=== PATIENT | male | born 1940 | race Asian ===

== ENCOUNTER → 2024-04-17 | Outpatient (CLI) | payer OTHER, MEDICAID, SELFPAY ==
[2024-04-17 07:59] LABS: Collection Type, Urine Clean Catch
[2024-04-17 08:27] LABS: Basophils % (Auto) 1 % (0-2.5); Eosinophils # (Auto) 0.1 Thou/mm3 (0.0-0.5); Eosinophils % (Auto) 2 % (0-10); Hematocrit 45.6 % (41.0-53.0); Hemoglobin 14.9 g/dL (13.5-16.0); Immature Granulocytes % (Auto) 0 % (0-0); Immature Granulocytes Auto 0.02 Thou/mm3 (0.00-0.00); Lymphocytes # (Auto) 2.6 Thou/mm3 (1.0-4.8); Lymphocytes % (Auto) 31 % (10-50); Mean Corpuscular HGB Conc 32.7 g/dl (31.0-37.0); Mean Corpuscular Hemoglobin 28.7 pg (25.0-35.0); Mean Corpuscular Volume 88 fL (80-100); Monocytes # (Auto) 0.7 Thou/mm3 (0.0-0.8); Monocytes % (Auto) 8 % (0-12); Neutrophils # (Auto) 5.1 Thou/mm3 (1.8-7.7); Neutrophils % (Auto) 59 % (37-80); Nucleated Red Blood Cell % 0 /100 WBC (0); Platelet Count 214 Thou/mm3 (140-440); RDW Standard Deviation 43.3 fL (35.1-43.9); White Blood Count 8.6 Thou/mm3 (3.8-10.6)
[2024-04-17 08:31] LABS: Bilirubin,Urine Negative (Negative); Blood,Urine 1+ (Negative); Clarity,Urine Clear (Clear/Hazy); Color,Urine Lt-Yellow (Lt Yel-Yel); Glucose, Urine Negative (Negative); Ketones,Urine Negative (Negative); Leukocyte Esterase,Urine Negative (Negative); Nitrite,Urine Negative (Negative); Protein,Urine 1+ (Neg - Trace); RBC,Urine 5 /hpf (0-3); Specific Gravity,Urine 1.022 (1.001-1.035); Squamous Epithelial Cell,Urine < 1 /hpf (0-5); Urobilinogen,Urine Negative mg/dL (0.0-1.0); WBC,Urine 2 /hpf (0-5)
[2024-04-17 08:40] LABS: Glucose Estimated Average 157 mg/dL (80-131); Hemoglobin A1C 7.1 % Hgb (4.8-6.0)
[2024-04-17 08:59] LABS: Albumin, Serum 4.6 gm/dL (3.4-4.8); Anion Gap 5 (7-16); BUN/Creatinine Ratio 11 Ratio (12-20); Blood Urea Nitrogen 17 mg/dL (9-23); Chloride 104 mMol/L (98-107); Creatinine (Component) 1.6 mg/dL (0.6-1.3); Glucose 176 mg/dL (74-106); Osmolality,Calculated 281 (275-295); Phosphorous 3.3 mg/dL (2.4-5.1); Potassium 4.9 mMol/L (3.4-5.1); Sodium 138 mMol/L (136-145); eGFR 42 See Note
== END | disposition home or self-care (01) ==
PROVIDERS: PCP Internal Medicine Nephrology; Referring Provider Internal Medicine Nephrology; Visit Provider Internal Medicine Nephrology
DX: E11.9 Type 2 diabetes mellitus without complications (principal)
CPT/HCPCS: 36415; 80069; 81001; 83036; 85025

== ENCOUNTER → 2024-08-03 | Outpatient (CLI) | payer MEDICARE, MEDICAID, SELFPAY ==
[2024-08-03 08:36] LABS: Basophils # (Auto) 0.1 Thou/mm3 (0.0-0.2); Basophils % (Auto) 1 % (0-2.5); Eosinophils # (Auto) 0.1 Thou/mm3 (0.0-0.5); Eosinophils % (Auto) 1 % (0-10); Hematocrit 45.2 % (41.0-53.0); Hemoglobin 14.9 g/dL (13.5-16.0); Immature Granulocytes % (Auto) 1 % (0-0); Immature Granulocytes Auto 0.04 Thou/mm3 (0.00-0.00); Lymphocytes # (Auto) 2.1 Thou/mm3 (1.0-4.8); Lymphocytes % (Auto) 26 % (10-50); Mean Corpuscular Volume 88 fL (80-100); Monocytes # (Auto) 0.7 Thou/mm3 (0.0-0.8); Monocytes % (Auto) 8 % (0-12); Neutrophils # (Auto) 5.3 Thou/mm3 (1.8-7.7); Neutrophils % (Auto) 64 % (37-80); Nucleated Red Blood Cell % 0 /100 WBC (0); Platelet Count 218 Thou/mm3 (140-440); RDW Standard Deviation 43.8 fL (35.1-43.9); Red Blood Count 5.13 Miln/mm3 (4.50-5.90); White Blood Count 8.3 Thou/mm3 (3.8-10.6)
[2024-08-03 08:43] LABS: Glucose Estimated Average 166 mg/dL (80-131); Hemoglobin A1C 7.4 % Hgb (4.8-6.0)
[2024-08-03 08:52] LABS: PSA Medicare Annual Scrn 1.54 ng/mL (0-4.00)
[2024-08-03 08:55] LABS: Collection Type, Urine Clean Catch
[2024-08-03 09:02] LABS: Alanine Aminotransferase 18 U/L (10-49); Albumin, Serum 4.6 gm/dL (3.4-4.8); Albumin/Globulin Ratio 1.7 (1.2-2.2); Alkaline Phosphatase 51 U/L (46-116); Anion Gap 11 (7-16); Aspartate Amino Transferase 18 U/L (0-34); BUN/Creatinine Ratio 16 Ratio (12-20); Bilirubin,Total 1.1 mg/dL (0.3-1.2); Blood Urea Nitrogen 27 mg/dL (9-23); Calcium 10.1 mg/dL (8.3-10.6); Calcium (Corrected) 10.1 mg/dL (8.5-10.1); Carbon Dioxide 27.5 mMol/L (20.0-31.0); Cardiac Risk Estimate 4.6 RATIO (4.0-6.7); Chloride 104 mMol/L (98-107); Cholesterol 218 mg/dL (132-200); Creatinine (Component) 1.7 mg/dL (0.6-1.3); Globulin 2.7 gm/dL (2.3-3.5); Glucose 171 mg/dL (74-106); HDL Cholesterol 47 mg/dL (40-60); LDL Cholesterol,Calculated 115 mg/dL (0-130); Osmolality,Calculated 292 (275-295); Potassium 5.3 mMol/L (3.4-5.1); Sodium 142 mMol/L (136-145); Total Protein 7.3 gm/dL (5.7-8.2); Triglycerides 278 mg/dL (30-150); eGFR 39 See Note
[2024-08-03 09:42] LABS: Bilirubin,Urine Negative (Negative); Blood,Urine 1+ (Negative); Clarity,Urine Clear (Clear/Hazy); Color,Urine Lt-Yellow (Lt Yel-Yel); Glucose, Urine Negative (Negative); Hyaline Casts,Urine < 1 /hpf (0-1); Ketones,Urine Negative (Negative); Leukocyte Esterase,Urine Negative (Negative); Nitrite,Urine Negative (Negative); PH,Urine 5.5 (5.0-7.0); Protein,Urine 1+ (Neg - Trace); RBC,Urine 2 /hpf (0-3); Specific Gravity,Urine 1.023 (1.001-1.035); Squamous Epithelial Cell,Urine < 1 /hpf (0-5); Urobilinogen,Urine Negative mg/dL (0.0-1.0); WBC,Urine 1 /hpf (0-5)
[2024-08-03 09:52] LABS: Creatinine MALB Rnd Ur 179 mg/dL (30-125); Microalbumin Creat Ratio 126 mg/gCrea (<30); Microalbumin, Random Urine 226 mg/L (0-300)
[2024-08-03 09:56] LABS: Urea Breath Test Negative (Negative)
== END | disposition home or self-care (01) ==
LOC: COPL 07:48
PROVIDERS: PCP Internal Medicine; Referring Provider Specialist; Visit Provider Internal Medicine
DX: Z00.00 Encounter for general adult medical examination without abnormal findings (principal); B96.81 Helicobacter pylori [H. pylori] as the cause of diseases classified elsewhere; Z12.5 Encounter for screening for malignant neoplasm of prostate
CPT/HCPCS: 36415; 80053; 80061; 81001; 82043; 82570; 83013; 83014; 83036; 84153; 85025; G0103

== ENCOUNTER → 2024-08-06 | Outpatient (CLI) | payer MEDICARE, MEDICAID, SELFPAY ==
[2024-08-06 08:17] LABS: OBS Performed By LAB; OBS QC OK? Yes
[2024-08-06 09:46] LABS: Occult Blood, Stool Negative (Negative); Occult Blood, Stool #2 Negative (Negative); Occult Blood, Stool #3 Negative (Negative)
[2024-08-06 09:47] LABS: OBS Developer Lot # 1-24-551749
== END | disposition home or self-care (01) ==
LOC: SLDO 08:11
PROVIDERS: Referring Provider Internal Medicine; Visit Provider Internal Medicine
DX: Z00.00 Encounter for general adult medical examination without abnormal findings (principal)
CPT/HCPCS: 82270

== ENCOUNTER 2024-10-19 20:17 | Inpatient (IN) | payer MEDICARE, MEDICAID, SELFPAY ==
[2024-10-19 20:18] VITALS: BMI 28.3
[2024-10-19 20:23] VITALS: BP 133/59; PULSE 46; RESP 16; TEMP 36.6; O2SAT 97
--- NOTE | 2024-10-19 20:58 | XR_ITS ---
Examination: AP chest single view Thank you upright PA chest single view ADDENDUM: Diagnostic: October 19, 2024 2112 hours INDICATIONS: Difficulty breathing chest pain and shortness of breath 3 days. FINDINGS: Normal heart size Mild vascular congestion. No lobar pneumonia or pulmonary edema IMPRESSION: Mild vascular congestion
--- NOTE | 2024-10-19 20:58 | EKG_ITS ---
[facility], [place] Test Date: 2024-10-19 Pat Name: AJIT GUY Department: Room: - Gender: Male Want Ad Supervisor: : 1940 Requested By: Alejo Alves (ANTONIO) Order Number: [id number] Reading MD: Alejo Alves ([employer]) Measurements Intervals Ball Rate: 44 P: AR: QRS: 64 QRSD: 138 T: 34 QT: 461 QTc: 397 Interpretive Statements ATRIAL FIBRILLATION WITH SLOW VENTRICULAR RESPONSE INTRAVENTRICULAR CONDUCTION DELAY [130+ ms QRS DURATION] No previous ECG available for comparison /store/S0/[id number].pdf
--- NOTE | 2024-10-19 20:59 | PD.EDRME ---
Rapid Medical Screening Exam RME Arrival date/time: 10/19/24 20:17 84-year-old male presents emergency department today for complaint of black tarry stools and abdominal pain Chief Complaint: Urogenital-Male Time Seen by Provider: 10/19/24 20:27 Vital signs: Vital Signs Temperature 97.8 F 10/19/24 20:23 Pulse Rate 46 L 10/19/24 20:23 Respiratory Rate 16 10/19/24 20:23 Blood Pressure 133/59 H 10/19/24 20:23 Pulse Oximetry (%) 97 10/19/24 20:23 Oxygen Delivery Method Room Air 10/19/24 20:23
[2024-10-19 21:23] LABS: Collection Type, Urine Clean Catch; WBC,Urine 0 /hpf (0-5)
[2024-10-19 21:24] LABS: Basophils # (Auto) 0.1 Thou/mm3 (0.0-0.2); Basophils % (Auto) 1 % (0-2.5); Eosinophils # (Auto) 0.3 Thou/mm3 (0.0-0.5); Eosinophils % (Auto) 3 % (0-10); Hematocrit 37.6 % (41.0-53.0); Hemoglobin 12.5 g/dL (13.5-16.0); Immature Granulocytes % (Auto) 0 % (0-0); Immature Granulocytes Auto 0.01 Thou/mm3 (0.00-0.00); Lymphocytes # (Auto) 2.8 Thou/mm3 (1.0-4.8); Lymphocytes % (Auto) 31 % (10-50); Mean Corpuscular HGB Conc 33.2 g/dl (31.0-37.0); Mean Corpuscular Hemoglobin 28.8 pg (25.0-35.0); Mean Corpuscular Volume 87 fL (80-100); Monocytes # (Auto) 0.9 Thou/mm3 (0.0-0.8); Monocytes % (Auto) 10 % (0-12); Neutrophils % (Auto) 55 % (37-80); Nucleated Red Blood Cell % 0 /100 WBC (0); Platelet Count 262 Thou/mm3 (140-440); RDW Standard Deviation 40.9 fL (35.1-43.9); Red Blood Count 4.34 Miln/mm3 (4.50-5.90)
[2024-10-19 21:30] LABS: Bacteria,Urine Rare; Bilirubin,Urine Negative (Negative); Blood,Urine Trace (Negative); Clarity,Urine Clear (Clear/Hazy); Color,Urine Lt-Yellow (Lt Yel-Yel); Glucose, Urine Negative (Negative); Hyaline Casts,Urine < 1 /hpf (0-1); Ketones,Urine Negative (Negative); Leukocyte Esterase,Urine Negative (Negative); Nitrite,Urine Negative (Negative); Protein,Urine 1+ (Neg - Trace); RBC,Urine 3 /hpf (0-3); Squamous Epithelial Cell,Urine < 1 /hpf (0-5); Urobilinogen,Urine Negative mg/dL (0.0-1.0)
[2024-10-19 21:43] LABS: Partial Thromboplastin Time 22.2 Seconds (22.0-36.0); Prothrombin Time 10.5 Seconds (9.0-12.2)
[2024-10-19 21:46] LABS: B-Type Natriuretic Peptide 38 pg/mL (0-100)
[2024-10-19 21:47] LABS: Alanine Aminotransferase 12 U/L (10-49); Albumin, Serum 4.7 gm/dL (3.4-4.8); Albumin/Globulin Ratio 1.5 (1.2-2.2); Alkaline Phosphatase 61 U/L (46-116); Anion Gap 7 (7-16); Aspartate Amino Transferase 16 U/L (0-34); BUN/Creatinine Ratio 24 Ratio (12-20); Bilirubin,Total 0.5 mg/dL (0.3-1.2); Blood Urea Nitrogen 53 mg/dL (9-23); Calcium 9.1 mg/dL (8.3-10.6); Calcium (Corrected) 9.1 mg/dL (8.5-10.1); Carbon Dioxide 23.5 mMol/L (20.0-31.0); Chloride 110 mMol/L (98-107); Creatinine (Component) 2.2 mg/dL (0.6-1.3); Estimated Creatinine Clearance 23.5 mL/min (>60); Globulin 3.1 gm/dL (2.3-3.5); Glucose 200 mg/dL (74-106); Lipase 89 U/L (12-53); Magnesium 2.7 mg/dL (1.6-2.6); Osmolality,Calculated 299 (275-295); Potassium 5.6 mMol/L (3.4-5.1); Sodium 140 mMol/L (136-145); Total Protein 7.8 gm/dL (5.7-8.2); Troponin I < 0.020 ng/mL (0.0-0.045); eGFR 29 See Note
--- NOTE | 2024-10-19 23:33 | PD.EDADULT ---
ED General RME/HPI General Chief complaint: Urogenital-Male Stated complaint: DARK BLOODY STOOLS Time Seen by Provider: 10/19/24 20:27 Arrival date/time: 10/19/24 20:17 RME / HPI RME / HPI narrative: 10/19/24 20:17 84-year-old male presents emergency department today for complaint of black tarry stools and abdominal pain ------ Dr. Rodriguez?s Main ED Evaluation: 84yo male with a history of DM, HTN, HLD presents to the ED for a chief complaint of black tarry stools. Patient states he had one episode of black stools last night. He endorses having generalized abdominal pain today, so he came in for evaluation. No N/V, fever, chills or any other associated symptoms. Patient is not on any blood thinners. NKA. Related Data Home Medications ?Medication ?Instructions ?Recorded ?Confirmed tamsulosin 0.4 mg capsule (Flomax) 0.4 mg PO QDAY ##0 04/10/15 03/14/24 glimepiride 4 mg tablet 4 mg PO QDAY ##60 08/17/16 03/14/24 lisinopril 10 mg tablet 20 mg PO QDAY ##30 08/17/16 03/14/24 atenolol 50 mg tablet 50 mg PO QDAY 03/14/24 03/14/24 rosuvastatin 20 mg tablet 20 mg PO QDAY 03/14/24 03/14/24 sitagliptin phosphate 50 mg tablet 50 mg PO QDAY 03/14/24 03/14/24 (Januvia) Allergies Allergy/AdvReac Type Severity Reaction Status Date / Time No Known Allergies Allergy Verified 03/14/24 13:20 Review of Systems Review of Systems Systems Reviewed: All systems reviewed, normal except as documented Past Medical History Past Medical History NEUROLOGIC: Negative Neurological Disorders or Seizures CARDIAC: Positive Cardiac Disorders, Hypercholesterolemia and Hypertension; Negative Congestive Heart Failure RESPIRATORY: Negative Chronic Obstructive Pulmonary Disease (COPD) GASTROINTESTINAL: Negative Gastrointestinal Disorders GENITOURINARY: Positive Genitourinary Disorders and Benign Prostatic Hyperplasia; Negative Renal Disease MUSCULOSKELETAL: Positive Musculoskeletal Disorders and Arthritis ENT: Positive Deafness (hard of hearing) ENDOCRINE: Positive Diabetes Mellitus Type 2; Negative Diabetes Mellitus Type 1 HEMATOLOGIC: Negative Blood Disorders or Anemia OTHER HISTORY: Negative Hospitalization, Down Syndrome, Developmental Delay, Falls, Blood Transfusions, Anesthesia Reactions, Chicken Pox, Measles, Mumps or Cancer Social History SMOKING STATUS: Never smoker ED Exam Narrative Physical exam: GENERAL APPEARANCE: AxOx4, generally well-appearing, no acute distress. HEENT: NC, AT. MMM. EOMI, clear conjunctiva, oropharynx clear. NECK: Supple without lymphadenopathy. No stiffness or restricted ROM. HEART: Normal rate and regular rhythm, normal S1/S1, no m/r/g LUNGS: CTAB, moving air well. No crackles or wheezes are heard. ABDOMEN: Soft, nontender, nondistended with good bowel sounds heard. BACK: No midline C/T/L spine pain or deformity, No CVAT, no obvious deformity. EXTREMITIES: Without cyanosis, clubbing or edema. MUSCULOSKELETAL: FROM of all major joints, no chest tenderness NEUROLOGICAL: Grossly nonfocal. Alert and oriented, moving all 4 extremities. CN not formally tested but appear grossly intact. Observed to ambulate with normal gait. Skin: Warm and dry without any rash. Course Quality Measures none Orders Category Date Time Status EKG (ED ONLY) *Do not use* NOW Care 10/19/24 20:58 Completed EKG (ED Only) Stat Exams 10/19/24 20:58 Ordered XR chest 1V portable Stat Exams 10/19/24 20:58 Completed B-Type Natriuretic Peptide Stat Lab 10/19/24 21:12 Completed CBC Stat Lab 10/19/24 21:12 Completed Comprehensive Metabolic Panel Stat Lab 10/19/24 21:12 Completed Lipase Stat Lab 10/19/24 21:12 Completed Magnesium Stat Lab 10/19/24 21:12 Completed Partial Thromboplastin Time Stat Lab 10/19/24 21:12 Completed Prothrombin Time with INR Stat Lab 10/19/24 21:12 Completed Troponin I Stat Lab 10/19/24 21:12 Completed Urinalysis Stat Lab 10/19/24 21:09 Completed Vital Signs Vital signs: Vital Signs Temperature 97.8 F 10/19/24 20:23 Pulse Rate 46 L 10/19/24 20:23 Respiratory Rate 16 10/19/24 20:23 Blood Pressure 133/59 H 10/19/24 20:23 Pulse Oximetry (%) 97 10/19/24 20:23 Oxygen Delivery Method Room Air 10/19/24 20:23 Discharge Plan Plan Patient Disposition: Admit Acute Care w/in Hospital Prescriptions/Referrals Prescriptions/Med Rec: No Action tamsulosin [Flomax] 0.4 MG capsule,extended release 24hr 0.4 mg PO QDAY Qty: 0 lisinopril 10 MG tablet 20 mg PO QDAY Qty: 30 glimepiride 4 MG tablet 4 mg PO QDAY Qty: 60 atenolol 50 mg tablet 50 mg PO QDAY Patient Comments: TAKE 1 TABLET BY MOUTH TWICE A DAY rosuvastatin 20 mg tablet 20 mg PO QDAY Patient Comments: TAKE 1 TABLET BY MOUTH EVERY DAY Januvia 50 mg tablet 50 mg PO QDAY Patient Comments: TAKE 1 TABLET BY MOUTH EVERY DAY Referrals: No Primary/Family,Physician [Primary Care Provider] - In 1 week Problem List Clinical Impression: Upper gastrointestinal bleed Patient/Caregiver Discharge Instructions Print Language: Venezuelan Stand Alone Forms: Sophie Award Info., Patient Portal Info Letter MDM Narrative MDM hospital course (for use when minimal MDM required): Scribe Attestation: 10/19/24 - Rachna Ley am scribing for and in the presence of Dr. Rodriguez. 2337: Discussed case with Dr. Marrufo from Hospitalist service regarding admission. Discussed patients ED course, exam findings, labs, and radiology results. The Hospitalist agrees to accept the patient for admission. Clinical Information Provided by: patient Medical Records reviewed [facility] (Per chart review, patient has no previous ED visits or admissions to this facility. Patient did have an outpatient endoscopy and colonoscopy on 03/14/24.) Meds/Rx considered, not ordered None Labs/Rad/Tests considered, not ordered None Chronic Illness/Social Conditions Explain: History of DM, HTN, HLD EKG Interpretation EKG #1: EKG Interpretation: EKG done at 2101, sinus bradycardia, rate of 47, normal intervals, normal axis, no acute ST or T wave changes, according to my interpretation. Labs Labs: Interpreted by [facility] Lab(s) Interpretation(s): WBC count is normal, HnH is 12.5/37.6, PT and INR are normal, PTT is normal, Potassium is 5.6, Creatinine is 2.2, Glucose is 200, troponin is normal, BNP is normal, Lipase is 89, UA is unremarkable, according to my interpretation. Imaging Imaging interpretation: Interpreted by [facility] Imaging Interpretation(s): [place] Report Signed Patient: AJIT GUY. Record#: [id number] Birthdate: 1940 Age/Sex: 84 / M Location: [facility] Attending Dr: Ordering Physician: Joselyn (ANTONIO)Alejo NP Date of Service: 10/19/24 Procedure(s): XR chest 1V portable Accession Number(s): [id number] cc: Joselyn CHOU),Alejo ALVAREZ; Otis Gaines MD; NO PRIMARY/FAMILY,PHYSICIAN~ Examination: AP chest single view Thank you upright PA chest single view ADDENDUM: Diagnostic: October 19, 2024 2112 hours INDICATIONS: Difficulty breathing chest pain and shortness of breath 3 days. FINDINGS: Normal heart size Mild vascular congestion. No lobar pneumonia or pulmonary edema IMPRESSION: Mild vascular congestion Dictated By: Otis Gaines MD Signed By: <Electronically signed by Otis Gaines MD in OV> 10/19/24 2152 Medication Administration(s) none Diagnosis Differential Diagnosis ED Complaint MDM: upper GI bleed, lower GI bleed, ischemic bowel
--- NOTE | 2024-10-19 23:39 | PD.HHHP ---
Documentation for date of: 10/19/24 HPI - Hospitalist History of Present Illness History of Present Illness: Black stool History of present illness: An 84-year-old male presented to the ER with the chief complaint of dark bloody stool. The patient described one day of passing black, bloody stool. He reported a week of stomach pain, but the dark stool started yesterday. He did not report frequent bowel movements. He also c/o dizziness and generalized weakness. Patient denied vomiting, chest pain, or syncope. He had a similar episode last year and underwent endoscopy. EGD on 03/14/2024 showed gastritis and esophagitis; colonoscopy revealed hemorrhoids and moderate diverticulosis. He came to the ER due to above mention. The patient has a history of DM and HTN. Social history includes no smoking, alcohol, or recreational drug use. He lives with his , who is his primary support. He remains independent with ADLs and still drives. No history of prior surgeries. In the ER, vital signs recorded as temp 97.8 F, HR 46 bpm, RR 16, BP 133/59 mmHg. Lab revealed WBC 9, Hb 12.5 (down from 14.9 two months ago), Plt 262, INR 1.0, Na 140, K 5.6, Cl 110, BUN 53, Cr 2.2, glucose 200. Admit for GI bleeding workup. Review of Systems Review of Systems Narrative Review of Systems: A 14 point review of systems was assessed and negative except for that per HPI Past Medical History Past Medical History NEUROLOGIC: Negative Neurological Disorders or Seizures CARDIAC: Positive Cardiac Disorders, Hypercholesterolemia and Hypertension; Negative Congestive Heart Failure RESPIRATORY: Negative Chronic Obstructive Pulmonary Disease (COPD) GASTROINTESTINAL: Negative Gastrointestinal Disorders GENITOURINARY: Positive Genitourinary Disorders and Benign Prostatic Hyperplasia; Negative Renal Disease MUSCULOSKELETAL: Positive Musculoskeletal Disorders and Arthritis ENT: Positive Deafness (hard of hearing) ENDOCRINE: Positive Diabetes Mellitus Type 2; Negative Diabetes Mellitus Type 1 HEMATOLOGIC: Negative Blood Disorders or Anemia OTHER HISTORY: Negative Hospitalization, Down Syndrome, Developmental Delay, Falls, Blood Transfusions, Anesthesia Reactions, Chicken Pox, Measles, Mumps or Cancer Social History SMOKING STATUS: Never smoker Meds Home Medications and Allergies Home Medications ?Medication ?Instructions ?Recorded ?Confirmed ?Type tamsulosin 0.4 mg capsule (Flomax) 0.4 mg PO QDAY ##0 04/10/15 03/14/24 History glimepiride 4 mg tablet 4 mg PO QDAY ##60 08/17/16 03/14/24 History lisinopril 10 mg tablet 20 mg PO QDAY ##30 08/17/16 03/14/24 History atenolol 50 mg tablet 50 mg PO QDAY 03/14/24 03/14/24 History rosuvastatin 20 mg tablet 20 mg PO QDAY 03/14/24 03/14/24 History sitagliptin phosphate 50 mg tablet 50 mg PO QDAY 03/14/24 03/14/24 History (Sheyla) Allergies Allergy/AdvReac Type Severity Reaction Status Date / Time No Known Allergies Allergy Verified 03/14/24 13:20 Exam Vital Signs Temp Pulse Resp BP Pulse Ox O2 Del Method 97.8 F 46 L 16 133/59 H 97 Room Air 10/19/24 20:23 10/19/24 20:23 10/19/24 20:23 10/19/24 20:23 10/19/24 20:23 10/19/24 20:23 Narrative Constitutional: Male, in no apparent distress. Eyes: Extraocular movements intact. No ptosis. PERRL. Neck: Supple, trachea midline. No thyromegaly. Lungs: Clear and good breath sounds equally. No wheezing. No rhonchi. CV: S1, S2. Regular rate and rhythm. GI: Soft, nontender. No HSM. Musculoskeletal: No cyanosis, clubbing or edema. Neuro: No focal deficit. No sensory deficit. Alert and oriented x3. Psychiatric: No signs of depression and is nonfocal. Skin: Warm and dry. Results - Hospitalist Labs Diagrams: 10/19/24 21:12 10/19/24 21:12 Labs: Short CBC 10/19/24 Range/Units 21:12 WBC 9.0 (3.8-10.6) Thou/mm3 Hgb 12.5 L (13.5-16.0) g/dL Hct 37.6 L (41.0-53.0) % Plt Count 262 (140-440) Thou/mm3 BMP 10/19/24 21:12 Sodium 140 Potassium 5.6 H Chloride 110 H Carbon Dioxide 23.5 BUN 53 H Creatinine 2.2 H Glucose 200 H Calcium 9.1 Cardiac Enzymes 10/19/24 Range/Units 21:12 Troponin I < 0.020 (0.0-0.045) ng/mL Liver Function 10/19/24 Range/Units 21:12 Total Bilirubin 0.5 (0.3-1.2) mg/dL AST 16 (0-34) U/L ALT 12 (10-49) U/L Alkaline Phosphatase 61 (46-116) U/L Albumin 4.7 (3.4-4.8) gm/dL Urine 10/19/24 Range/Units 21:09 Urine Color Lt-Yellow (Lt Yel-Yel) Urine Clarity Clear (Clear/Hazy) Urine pH 6.0 (5.0-7.0) Ur Specific [place] 1.020 (1.001-1.035) Urine Protein 1+ A (Neg - Trace) Urine Glucose (UA) Negative (Negative) Assessment & Plan -Hospitalist Additional Assessment #Upper GI Bleed Assessment: Melena, dizziness, acute drop in Hb (12.5 from baseline 14.9), history of gastritis/esophagitis on prior EGD, hemodynamically stable (HR 46, BP 133/59), no overt signs of hypovolemia Plan: - NPO - IV PPI - Type and crossmatch - Gastroenterology consult for EGD - IV fluids for hydration and renal perfusion - Monitor orthostatic vitals and signs of hemodynamic instability #Bradycardia Assessment: HR 46 bpm on admission, asymptomatic from bradycardia, no syncope or chest pain Plan: - Monitor HR and rhythm on telemetry - Hold B-david #Acute on Chronic Kidney Disease Assessment: Cr 2.2, baseline 1.7, BUN 53, likely prerenal due to GI bleed Plan: - IV isotonic fluids for renal perfusion support - Trend creatinine and BUN daily - Avoid nephrotoxic agents and adjust medication doses per renal function #Hypertension Assessment: History of HTN, BP 133/59 on admission, not currently hypertensive Plan: - Hold home antihypertensives during acute illness #Type 2 Diabetes Mellitus Assessment: Hyperglycemia (glucose 200), history of DM Plan: - Monitor inpatient glucose with goal preprandial <140 mg/dL, random <180 mg/dL - Insulin sliding scale Quality Measures Quality Measures none Advance care planning discussed with:: patient
[2024-10-19 23:43] VITALS: BP 146/63; PULSE 47; RESP 26; O2SAT 98
[2024-10-20] VITALS (32 sets, daily range): BP systolic 100–165; BP diastolic 41–62; PULSE 40–54; RESP 9–27; TEMP 36.4–37; O2SAT 96–99
[2024-10-20] MEDS: SODIUM CHLORIDE 0.9% 1000 ML 1,000 ML 100 ML IV ×3 (01:23→22:46)
[2024-10-20] MEDS: PANTOPRAZOLE/NS 80MG IV PREMIX 80 MG/100 ML BAG 10 MG IV ×3 (01:24→22:43)
--- NOTE | 2024-10-20 03:29 | PC.NURSE ---
PT IS SLEEPING/RESTING QUIETLY. FAMILY MEMBER AT BEDSIDE.
[2024-10-20 05:24] LABS: Basophils # (Auto) 0.1 Thou/mm3 (0.0-0.2); Basophils % (Auto) 1 % (0-2.5); Eosinophils # (Auto) 0.3 Thou/mm3 (0.0-0.5); Eosinophils % (Auto) 4 % (0-10); Hematocrit 37.4 % (41.0-53.0); Hemoglobin 12.1 g/dL (13.5-16.0); Immature Granulocytes % (Auto) 0 % (0-0); Immature Granulocytes Auto 0.02 Thou/mm3 (0.00-0.00); Lymphocytes # (Auto) 1.8 Thou/mm3 (1.0-4.8); Lymphocytes % (Auto) 24 % (10-50); Mean Corpuscular HGB Conc 32.4 g/dl (31.0-37.0); Mean Corpuscular Hemoglobin 28.9 pg (25.0-35.0); Mean Corpuscular Volume 89 fL (80-100); Monocytes # (Auto) 0.8 Thou/mm3 (0.0-0.8); Monocytes % (Auto) 10 % (0-12); Neutrophils # (Auto) 4.5 Thou/mm3 (1.8-7.7); Neutrophils % (Auto) 61 % (37-80); Nucleated Red Blood Cell % 0 /100 WBC (0); Platelet Count 245 Thou/mm3 (140-440); RDW Standard Deviation 41.8 fL (35.1-43.9); Red Blood Count 4.19 Miln/mm3 (4.50-5.90); White Blood Count 7.4 Thou/mm3 (3.8-10.6)
[2024-10-20 05:38] LABS: Anion Gap 8 (7-16); BUN/Creatinine Ratio 26 Ratio (12-20); Blood Urea Nitrogen 49 mg/dL (9-23); Calcium 8.8 mg/dL (8.3-10.6); Carbon Dioxide 24.5 mMol/L (20.0-31.0); Chloride 110 mMol/L (98-107); Creatinine (Component) 1.9 mg/dL (0.6-1.3); Estimated Creatinine Clearance 27.2 mL/min (>60); Glucose 151 mg/dL (74-106); Osmolality,Calculated 299 (275-295); Potassium 5.3 mMol/L (3.4-5.1); Sodium 142 mMol/L (136-145); eGFR 34 See Note
--- NOTE | 2024-10-20 06:48 | PC.NURSE ---
pt has been sleeping. Up to void x2. A&O x4. family member remains at bedside. no BM since arival to ER.
[2024-10-20] MEDS: SOD POLYSTYRENE SULFON SUSP 15 GM/60 ML BTL 30 GM PO (10:08)
--- NOTE | 2024-10-20 11:42 | PD.RESPRO ---
Documentation for date of: 10/20/24 Subjective Subjective Interval history: Patient seen today at the bedside found awake, alert, oriented x 3. No overnight events reported. Vital signs and labs reviewed. Interviewed the patient stated he has been having dark tarry stools. Apparently had H. pylori infection sometime ago however due to changing insurance did not get results after H. pylori treatment. GI was consulted and will evaluate the patient. On labs patient was found to be hypokalemic Kayexalate was provided. Will continue with Protonix at this time and will keep n.p.o. in case of GI intervention. Exam Vital Signs Temp Pulse Resp BP Pulse Ox O2 Del Method 97.6 F 47 L 24 H 165/60 H 99 Room Air 10/20/24 11:14 10/20/24 11:14 10/20/24 11:14 10/20/24 11:14 10/20/24 11:14 10/20/24 11:14 Narrative Exam Physical Exam GENERAL: NAD, sweaty HEENT: Moist mucosa. Eyes open, symmetrical, & clear CARDIO: Heart bradycardic, no obvious murmurs PULM: No noted coughing/dyspnea CTA B/L, no R/W/R GI: Abdomen soft, nondistended, no pain on palpation. BSx4 SKIN/MSK/EXT: No wounds/rashes/edema/amputations, no pain on palpation. Pedal pulses present B/L NEURO: no focal neuro deficits, able to move all 4 extremities Objective Labs 10/20/24 04:46 10/20/24 04:46 Labs: Laboratory Results - last 24 hr 10/19/24 10/19/24 10/20/24 21:09 21:12 00:00 WBC 9.0 RBC 4.34 L Hgb 12.5 L Hct 37.6 L MCV 87 MCH 28.8 MCHC 33.2 RDW Std Deviation 40.9 Plt Count 262 Neut % (Auto) 55 Lymph % (Auto) 31 [place] % (Auto) 10 Eos % (Auto) 3 Baso % (Auto) 1 Neut # (Auto) 5.0 Lymph # (Auto) 2.8 [place] # (Auto) 0.9 H Eos # (Auto) 0.3 Baso # (Auto) 0.1 Immature Gran # (Auto) 0.01 H Absolute Nucleated RBC 0.00 Immature Gran % 0 Nucleated RBC % 0 PT 10.5 INR 1.0 APTT 22.2 Sodium 140 Potassium 5.6 H Chloride 110 H Carbon Dioxide 23.5 Anion Gap 7 BUN 53 H Creatinine 2.2 H Estim Creat Clear Calc 23.5 L eGFR 29 L BUN/Creatinine Ratio 24 H Glucose 200 H Calculated Osmolality 299 H Calcium 9.1 Corrected Calcium 9.1 Magnesium 2.7 H Total Bilirubin 0.5 AST 16 ALT 12 Alkaline Phosphatase 61 Troponin I < 0.020 B-Natriuretic Peptide 38 Total Protein 7.8 Albumin 4.7 Globulin 3.1 Albumin/Globulin Ratio 1.5 Lipase 89 H Ur Collection Type Clean Catch Urine Color Lt-Yellow Urine Clarity Clear Urine pH 6.0 Ur Specific [place] 1.020 Urine Protein 1+ A Urine Glucose (UA) Negative Urine Ketones Negative Urine Blood Trace Urine Nitrite Negative Urine Bilirubin Negative Urine Urobilinogen (Auto) Negative Ur Leukocyte Esterase Negative Urine RBC 3 Urine WBC 0 Ur Squamous Epith Cells < 1 Urine Bacteria Rare Hyaline Casts < 1 Blood Type B Positive Antibody Screen NEGATIVE Blood Bank Wristband ID Yes 10/20/24 04:46 WBC 7.4 RBC 4.19 L Hgb 12.1 L Hct 37.4 L MCV 89 MCH 28.9 MCHC 32.4 RDW Std Deviation 41.8 Plt Count 245 Neut % (Auto) 61 Lymph % (Auto) 24 [place] % (Auto) 10 Eos % (Auto) 4 Baso % (Auto) 1 Neut # (Auto) 4.5 Lymph # (Auto) 1.8 [place] # (Auto) 0.8 Eos # (Auto) 0.3 Baso # (Auto) 0.1 Immature Gran # (Auto) 0.02 H Absolute Nucleated RBC 0.00 Immature Gran % 0 Nucleated RBC % 0 PT INR APTT Sodium 142 Potassium 5.3 H Chloride 110 H Carbon Dioxide 24.5 Anion Gap 8 BUN 49 H Creatinine 1.9 H Estim Creat Clear Calc 27.2 L eGFR 34 L BUN/Creatinine Ratio 26 H Glucose 151 H Calculated Osmolality 299 H Calcium 8.8 Corrected Calcium Magnesium Total Bilirubin AST ALT Alkaline Phosphatase Troponin I B-Natriuretic Peptide Total Protein Albumin Globulin Albumin/Globulin Ratio Lipase Ur Collection Type Urine Color Urine Clarity Urine pH Ur Specific [place] Urine Protein Urine Glucose (UA) Urine Ketones Urine Blood Urine Nitrite Urine Bilirubin Urine Urobilinogen (Auto) Ur Leukocyte Esterase Urine RBC Urine WBC Ur Squamous Epith Cells Urine Bacteria Hyaline Casts Blood Type Antibody Screen Blood Bank Wristband ID Quality Measures Quality Measures none Advance care planning discussed with:: patient Assessment & Plan Assessment Current Active Medications: Generic Name Dose Route Start Last Admin Trade Name Freq PRN Reason Stop Dose Admin Dextrose 25 ml 10/19/24 23:40 Dextrose 50%-Water Inj 50 Ml Syringe IV 11/18/24 23:39 Q15MIN PRN BG 50-70 responsive npo pt Dextrose 50 ml 10/19/24 23:40 Dextrose 50%-Water Inj 50 Ml Syringe IV 11/18/24 23:39 Q15MIN PRN BG <50 OR BG <70 & pt unresponsive Glucagon 1 mg 10/19/24 23:40 Glucagon Inj 1 Mg Vial IM Q15MIN PRN BG <70, and no IV access Glucagon 1 mg 10/20/24 08:12 Glucagon Inj 1 Mg Vial IM Q15MIN PRN BG <70, and no IV access Sodium Chloride 1,000 mls @ 100 mls/hr 10/19/24 23:45 10/20/24 01:23 Ns IV 11/18/24 23:44 100 mls/hr .Q10H ROSS Administration Pantoprazole Sodium 80 mg in 100 mls @ 10 mls/hr 10/20/24 09:45 10/20/24 10:05 Protonix/Ns 80mg Iv Premix IV 10/22/24 21:44 10 mls/hr Q10H ROSS Administration Insulin Human Lispro 0 unit 10/20/24 07:30 10/20/24 07:57 Insulin Lispro (Admelog) 1 Unit/0.01 Ml Unit SC 11/19/24 07:29 Not Given AC ROSS Protocol Plan 84-year-old male with past medical history of diabetes and hypertension who presented to the ED due to dark bloody stools and abdominal pain. Patient was admitted for upper GI bleed GI was consulted will await further recommendations. #Upper GI Bleed #?H.Pylori infection Melena, dizziness, acute drop in Hb (12.5 from baseline 14.9), history of gastritis/esophagitis on prior EGD, hemodynamically stable (HR 46, BP 133/59), no overt signs of hypovolemia Apparently had H. pylori infection sometime ago however due to changing insurance did not get results after H. pylori treatment. ? N.p.o. for possible GI intervention ? H. Pylori stool antigen ordered ? IV Protonix ? Monitor hemoglobin ? Transfuse if hemoglobin less than 7 #Bradycardia No symptoms at this time, no syncope no chest pain ? Monitor heart rate on telemetry as well as rhythm ? Avoid beta-blockers at this time ? Keep K>4, Mg>2 #Acute on chronic CKD?improving Baseline creatinine ~1.7, likely prerenal in the setting of upper GI bleed Received IV fluids ? Avoid nephrotoxins ? Renally dose medications #Hypertension Currently normal to hypotensive in the setting of GI bleed ? Avoid resuming antihypertensives during acute illness #Diabetes mellitus type 2 ? SSI ? Hypoglycemia protocol in place Disposition: tele, bradycardic and gi bleed Fluids: None Feeding: NPO, possible GI intervention Thrombo prophylaxis: SCDs Gastric Ulcer prophylaxis: Pantoprazole CODE STATUS: Full code Case discussed with my attending Dr. Jose Gunderson MD PGY-1 Attending Provider Attestation/Addendum I, Karolyn Garcia, DO, attest that I was physically present for the owen portions of the service and evaluated the patient with the resident and I reviewed and discussed the case with the resident and agree with the resident's findings and plans of care as documented above Patient seen eval this a.m. in the ED. Grandson at bedside. Patient states that he has been having epigastric pain for the past 4 days with melanotic stools. He denies taking any Pepto-Bismol over the course of these past 2 days. He endorses having history of H. pylori infection, but never was able to follow-up after treatment due to change in insurance. Patient is currently n.p.o. pending GI evaluation and possible EGD. Hemoglobin has been stable. He has been hemodynamically stable. Patient appears to have bradycardia which is chronic and asymptomatic. Continue with IV fluids for SUSI
--- NOTE | 2024-10-20 16:14 | PD.IMCONS ---
HPI Data of Consult Requesting Physician: Wayne Marrufo MD Primary Care Provider: Physician No Primary/Family Consult Narrative Reason for consult: Melena History of present illness: 84 years old male comes in for evaluation to the emergency room because of melanotic stool for the last 3 to 5 days and having dizziness and vertigo Presenting hemoglobin hematocrit was 12.1 and 37.4 with a platelet count of 245,000 Patient has a history of diabetes mellitus type 2 essential hypertension hyperlipidemia Patient did have Hemoccult positive stool in March 2024 and underwent on 03/14/2020 for upper endoscopy which showed gastritis and colonoscopy which showed internal hemorrhoids and moderate diverticulosis sigmoid and descending colon otherwise normal colonoscopy to cecum cc:: cc: Wayne Marrufo MD Review of Systems Review of Systems Systems Reviewed: All systems reviewed, normal except as documented Past Medical History Surgical History OTHER SURGICAL HX: As in the history of present illness Meds Home Medications and Allergies Home Medications ?Medication ?Instructions ?Recorded ?Confirmed ?Type tamsulosin 0.4 mg capsule (Flomax) 0.4 mg PO QDAY ##0 04/10/15 03/14/24 History glimepiride 4 mg tablet 4 mg PO QDAY ##60 08/17/16 03/14/24 History lisinopril 10 mg tablet 20 mg PO QDAY ##30 08/17/16 03/14/24 History atenolol 50 mg tablet 50 mg PO QDAY 03/14/24 03/14/24 History rosuvastatin 20 mg tablet 20 mg PO QDAY 03/14/24 03/14/24 History sitagliptin phosphate 50 mg tablet 50 mg PO QDAY 03/14/24 03/14/24 History (Januvia) Allergies Allergy/AdvReac Type Severity Reaction Status Date / Time No Known Allergies Allergy Verified 03/14/24 13:20 Exam Vital Signs Temp Pulse Resp BP Pulse Ox O2 Del Method 98.2 F 45 L 21 H 147/55 H 98 Room Air 10/20/24 16:04 10/20/24 16:04 10/20/24 16:04 10/20/24 16:04 10/20/24 16:04 10/20/24 16:04 Routine Respiratory Exam Comments: Normal to auscultation Routine Abdominal Exam Comments: Soft nontender Results Labs 10/20/24 04:46 10/20/24 04:46 Labs: Short CBC 10/19/24 10/20/24 Range/Units 21:12 04:46 WBC 9.0 7.4 (3.8-10.6) Thou/mm3 Hgb 12.5 L 12.1 L (13.5-16.0) g/dL Hct 37.6 L 37.4 L (41.0-53.0) % Plt Count 262 245 (140-440) Thou/mm3 BMP 10/19/24 10/20/24 21:12 04:46 Sodium 140 142 Potassium 5.6 H 5.3 H Chloride 110 H 110 H Carbon Dioxide 23.5 24.5 BUN 53 H 49 H Creatinine 2.2 H 1.9 H Glucose 200 H 151 H Calcium 9.1 8.8 Cardiac Enzymes 10/19/24 Range/Units 21:12 Troponin I < 0.020 (0.0-0.045) ng/mL Liver Function 10/19/24 Range/Units 21:12 Total Bilirubin 0.5 (0.3-1.2) mg/dL AST 16 (0-34) U/L ALT 12 (10-49) U/L Alkaline Phosphatase 61 (46-116) U/L Albumin 4.7 (3.4-4.8) gm/dL Urine 10/19/24 Range/Units 21:09 Urine Color Lt-Yellow (Lt Yel-Yel) Urine Clarity Clear (Clear/Hazy) Urine pH 6.0 (5.0-7.0) Ur Specific [place] 1.020 (1.001-1.035) Urine Protein 1+ A (Neg - Trace) Urine Glucose (UA) Negative (Negative) Assessment and Plan Additional Assessment & Plan Additional Plan: # Melena either upper GI bleeding or a small bowel bleed Patient is dehydrated with a BUN/creatinine of 53 and 2.2 so he has a significant bleed at the hemoglobin hematocrit is going to drop down precipitously Plan Clear liquid diet till 12 midnight then n.p.o. IV Protonix Serial CBCs Consent obtained for fiberoptic esophagogastroduodenoscopy with possible biopsy possible therapeutic intervention under intravenous moderate sedation as scheduled for tomorrow Other medical problems include # Essential hypertension # Hyperlipidemia # Diabetes mellitus type 2 Thank you once again for the opportunity to participate in the care of this patient
--- NOTE | 2024-10-20 23:32 | PC.NURSE ---
pt sleeping. family at bedside. no changes.
[2024-10-21] VITALS (19 sets, daily range): BP systolic 96–168; BP diastolic 42–80; PULSE 40–59; RESP 0–22; TEMP 36.1–36.6; O2SAT 96–100; BMI 28.8
--- NOTE | 2024-10-21 03:40 | PC.NURSE ---
report called to Coral KRAUSE. pt taken to by me on monitor
[2024-10-21] MEDS: amLODIPine BESYLATE 5 MG TABLET PO (05:19)
[2024-10-21 06:13] LABS: Basophils % (Auto) 0 % (0-2.5); Eosinophils # (Auto) 0.3 Thou/mm3 (0.0-0.5); Eosinophils % (Auto) 4 % (0-10); Hematocrit 37.2 % (41.0-53.0); Hemoglobin 12.5 g/dL (13.5-16.0); Immature Granulocytes % (Auto) 0 % (0-0); Immature Granulocytes Auto 0.02 Thou/mm3 (0.00-0.00); Lymphocytes # (Auto) 1.9 Thou/mm3 (1.0-4.8); Lymphocytes % (Auto) 26 % (10-50); Mean Corpuscular HGB Conc 33.6 g/dl (31.0-37.0); Mean Corpuscular Hemoglobin 29.1 pg (25.0-35.0); Mean Corpuscular Volume 87 fL (80-100); Monocytes # (Auto) 0.7 Thou/mm3 (0.0-0.8); Monocytes % (Auto) 10 % (0-12); Neutrophils # (Auto) 4.4 Thou/mm3 (1.8-7.7); Neutrophils % (Auto) 60 % (37-80); Nucleated Red Blood Cell % 0 /100 WBC (0); Platelet Count 238 Thou/mm3 (140-440); White Blood Count 7.3 Thou/mm3 (3.8-10.6)
[2024-10-21] MEDS: PANTOPRAZOLE/NS 80MG IV PREMIX 80 MG/100 ML BAG 10 MG IV ×2 (06:28→15:16)
[2024-10-21 06:47] LABS: Alanine Aminotransferase 14 U/L (10-49); Albumin, Serum 4.2 gm/dL (3.4-4.8); Albumin/Globulin Ratio 1.4 (1.2-2.2); Alkaline Phosphatase 59 U/L (46-116); Anion Gap 7 (7-16); Aspartate Amino Transferase 17 U/L (0-34); BUN/Creatinine Ratio 19 Ratio (12-20); Blood Urea Nitrogen 26 mg/dL (9-23); Calcium 8.6 mg/dL (8.3-10.6); Calcium (Corrected) 8.6 mg/dL (8.5-10.1); Chloride 111 mMol/L (98-107); Creatinine (Component) 1.4 mg/dL (0.6-1.3); Estimated Creatinine Clearance 37.3 mL/min (>60); Globulin 2.9 gm/dL (2.3-3.5); Glucose 152 mg/dL (74-106); Magnesium 2.2 mg/dL (1.6-2.6); Osmolality,Calculated 288 (275-295); Phosphorous 2.2 mg/dL (2.4-5.1); Potassium 5.3 mMol/L (3.4-5.1); Sodium 141 mMol/L (136-145); Total Protein 7.1 gm/dL (5.7-8.2); eGFR 49 See Note
--- NOTE | 2024-10-21 07:49 | EKG_ITS ---
[facility] Test Date: 2024-10-21 Pat Name: AJIT GUY [facility] Manager Contact: AFTAB : [id number] Requested By: Jered Gunderson Order Number: [id number] Reading MD: Jered Gunderson Measurements Intervals [place] Rate: 43 P: OK: QRS: 63 QRSD: 129 T: 14 QT: 488 QTc: 414 Interpretive Statements ATRIAL FIBRILLATION WITH SLOW VENTRICULAR RESPONSE RIGHT BUNDLE BRANCH BLOCK Compared to ECG 10/19/2024 23:43:07 Right bundle-branch block now present Intraventricular conduction delay no longer present /store/S0/[id number]/ecg/[id number].pdf
[2024-10-21] MEDS: SOD POLYSTYRENE SULFON SUSP 15 GM/60 ML BTL 30 GM PO (09:06)
[2024-10-21] MEDS: SODIUM CHLORIDE 0.9% 1000 ML 1,000 ML 100 ML IV ×2 (09:07→20:37)
--- NOTE | 2024-10-21 11:35 | ESPR_ITS ---
Documentation for date of: 10/21/24 Subjective Subjective Interval history: Patient seen today at the bedside found awake, alert, orientedx3. No overnight events reported. Vitals and labs reviewed. Still with some hyperkalemia 1 dose of Kayexalate ordered patient would likely benefit from scheduled Veltassa at the time of discharge. Patient is also scheduled to have EGD with GI specialist today. Additionally stool antigen for H. pylori still pending. Kidney function has returned to baseline. Will continue to monitor. Exam Vital Signs Temp Pulse Resp BP Pulse Ox O2 Del Method 96.9 F 55 L 12 146/80 H 98 Room Air 10/21/24 08:00 10/21/24 08:39 10/21/24 08:00 10/21/24 08:39 10/21/24 08:00 10/21/24 08:00 Narrative Exam Physical Exam GENERAL: NAD, AAOx3 HEENT: Moist mucosa. Eyes open, symmetrical, & clear CARDIO: Heart RRR, no obvious murmurs, bradycardic PULM: No noted coughing/dyspnea CTA B/L, no R/W/R GI: Abdomen soft, distended, no pain on palpation. BS+ SKIN/MSK/EXT: No wounds/rashes/edema/amputations, no pain on palpation. Pedal pulses present B/L NEURO: AAOx3, no focal neuro deficits, able to move all 4 extremities Objective Labs 10/21/24 05:37 10/21/24 05:37 Labs: Laboratory Results - last 24 hr 10/21/24 05:37 WBC 7.3 RBC 4.30 L Hgb 12.5 L Hct 37.2 L MCV 87 MCH 29.1 MCHC 33.6 RDW Std Deviation 40.0 Plt Count 238 Neut % (Auto) 60 Lymph % (Auto) 26 [place] % (Auto) 10 Eos % (Auto) 4 Baso % (Auto) 0 Neut # (Auto) 4.4 Lymph # (Auto) 1.9 [place] # (Auto) 0.7 Eos # (Auto) 0.3 Baso # (Auto) 0.0 Immature Gran # (Auto) 0.02 H Absolute Nucleated RBC 0.00 Immature Gran % 0 Nucleated RBC % 0 Sodium 141 Potassium 5.3 H Chloride 111 H Carbon Dioxide 23.0 Anion Gap 7 BUN 26 H Creatinine 1.4 H D Estim Creat Clear Calc 37.3 L eGFR 49 L BUN/Creatinine Ratio 19 Glucose 152 H Calculated Osmolality 288 Calcium 8.6 Corrected Calcium 8.6 Phosphorus 2.2 L Magnesium 2.2 Total Bilirubin 1.0 D AST 17 ALT 14 Alkaline Phosphatase 59 Total Protein 7.1 Albumin 4.2 D Globulin 2.9 Albumin/Globulin Ratio 1.4 Quality Measures Quality Measures none Advance care planning discussed with:: patient and child Assessment & Plan Assessment Current Active Medications: Generic Name Dose Route Start Last Admin Trade Name Freq PRN Reason Stop Dose Admin Amlodipine Besylate 5 mg 10/21/24 05:05 10/21/24 08:39 Amlodipine Besylate 5 Mg Tablet PO 11/20/24 05:04 Not Given QDAY ROSS Dextrose 25 ml 10/19/24 23:40 Dextrose 50%-Water Inj 50 Ml Syringe IV 11/18/24 23:39 Q15MIN PRN BG 50-70 responsive npo pt Dextrose 50 ml 10/19/24 23:40 Dextrose 50%-Water Inj 50 Ml Syringe IV 11/18/24 23:39 Q15MIN PRN BG <50 OR BG <70 & pt unresponsive Glucagon 1 mg 10/20/24 08:12 Glucagon Inj 1 Mg Vial IM Q15MIN PRN BG <70, and no IV access Sodium Chloride 1,000 mls @ 100 mls/hr 10/19/24 23:45 10/21/24 09:07 Ns IV 11/18/24 23:44 100 mls/hr .Q10H ROSS Administration Pantoprazole Sodium 80 mg in 100 mls @ 10 mls/hr 10/20/24 09:45 10/21/24 06:28 Protonix/Ns 80mg Iv Premix IV 10/22/24 21:44 10 mls/hr Q10H ROSS Administration Insulin Human Lispro 0 unit 10/21/24 07:30 10/21/24 11:34 Insulin Lispro (Admelog) 1 Unit/0.01 Ml Unit SC 11/20/24 07:29 Not Given ACHS [facility] Protocol Tamsulosin HCl 0.4 mg 10/21/24 09:00 10/21/24 08:40 Tamsulosin Hcl 0.4 Mg Capsule PO 11/20/24 08:59 Not Given QDAY ROSS Plan 84-year-old male with past medical history of diabetes and hypertension who presented to the ED due to dark bloody stools and abdominal pain. Patient was admitted for upper GI bleed GI was consulted will await further recommendations. #Upper GI Bleed #?H.Pylori infection Melena, dizziness, acute drop in Hb (12.5 from baseline 14.9), history of gastritis/esophagitis on prior EGD, hemodynamically stable (HR 46, BP 133/59), no overt signs of hypovolemia Apparently had H. pylori infection sometime ago however due to changing insurance did not get results after H. pylori treatment. ? EGD today ? H. Pylori stool antigen ordered ? IV Protonix ? Monitor hemoglobin ? Transfuse if hemoglobin less than 7 #Bradycardia No symptoms at this time, no syncope no chest pain Patient would likely benefit with outpatient cardiology in regards to the patient's bradycardia. At this time patient does not have any symptoms with heart rate in the 40s ? Monitor heart rate on telemetry as well as rhythm ? Avoid beta-blockers at this time ? Keep K>4, Mg>2 ? Echo ordered #Acute on chronic CKD stage IIIA?resolved Baseline creatinine ~1.4-1.5, likely prerenal in the setting of upper GI bleed Received IV fluids ? Avoid nephrotoxins ? Renally dose medications #Hyperkalemia Upon chart review patient's potassium has been above 5 numerous times, could likely be contributing to the patients bradycardia, patient would likely benefit at the time of discharge, schedule Veltassa, ? Kayexalate ordered #Hypertension Currently normal to hypotensive in the setting of GI bleed ? Avoid resuming antihypertensives during acute illness #Diabetes mellitus type 2 ? SSI ? Hypoglycemia protocol in place Disposition: tele, bradycardic and gi bleed Fluids: None Feeding: NPO, possible GI intervention Thrombo prophylaxis: SCDs Gastric Ulcer prophylaxis: Pantoprazole CODE STATUS: Full code Case discussed with my attending Dr. Jose Gunderson MD PGY-1 Attending Provider Attestation/Addendum Karolyn Ley DO, attest that I was physically present for the owen portions of the service and evaluated the patient with the resident and I reviewed and discussed the case with the resident and agree with the resident's findings and plans of care as documented above Patient seen and evaluated this AM. no acute events overnight. patient states he has no pain and doing well. EKG shows slow afib. 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 Will obtain echo at this time. Potassium noted to be persistently elevated, will likely need veltassa daily on discharge. It may also be the reason for the bradycardia. Kayexalate given.
[2024-10-21] MEDS: MG HYD/AL HYD/SIME (Maalox Reg) SUSP 30 ML UDC 15 ML PO ×3 (15:15→21:00)
--- NOTE | 2024-10-21 15:18 | SUR.PHASEI ---
1445 Pt ready for transfer back to rm 274. Pt started c/o abdominal pain w/abd distention noted. Dr Ricardo to come assess pt in PACU. 1555 Pt amb with steady gait to BR. Had bowel movement with relief from abdominal pain, expressed by pt. Dr Ricardo assessed pt. No new orders received. Pt stable to return to [facility].
[2024-10-21] MEDS: SUCRALFATE SUSP 1 GM/10 ML UDC PO ×2 (17:38→21:00)
[2024-10-21 18:56] LABS: Anion Gap 8 (7-16); Calcium 8.8 mg/dL (8.3-10.6); Carbon Dioxide 20.9 mMol/L (20.0-31.0); Chloride 109 mMol/L (98-107); Creatinine (Component) 1.3 mg/dL (0.6-1.3); Estimated Creatinine Clearance 40.1 mL/min (>60); Glucose 151 mg/dL (74-106); Potassium 4.5 mMol/L (3.4-5.1); Sodium 138 mMol/L (136-145); eGFR 54 See Note
[2024-10-21 19:10] LABS: Blood Urea Nitrogen 20 mg/dL (9-23)
[2024-10-21 19:11] LABS: BUN/Creatinine Ratio 20 Ratio (12-20)
[2024-10-21 19:16] LABS: Osmolality,Calculated 273 (275-295)
[2024-10-22] VITALS (7 sets, daily range): BP systolic 128–146; BP diastolic 57–72; PULSE 39–87; RESP 10–26; TEMP 36–36.9; O2SAT 97–99; BMI 28.8
[2024-10-22] MEDS: PANTOPRAZOLE/NS 80MG IV PREMIX 80 MG/100 ML BAG 10 MG IV ×2 (01:16→11:12)
[2024-10-22] MEDS: MG HYD/AL HYD/SIME (Maalox Reg) SUSP 30 ML UDC 15 ML PO ×6 (01:19→22:04)
[2024-10-22] MEDS: SODIUM CHLORIDE 0.9% 1000 ML 1,000 ML 100 ML IV ×2 (05:26→16:51)
[2024-10-22 08:09] LABS: Alanine Aminotransferase 18 U/L (10-49); Albumin, Serum 4.1 gm/dL (3.4-4.8); Albumin/Globulin Ratio 1.4 (1.2-2.2); Alkaline Phosphatase 60 U/L (46-116); Anion Gap 7 (7-16); Aspartate Amino Transferase 19 U/L (0-34); BUN/Creatinine Ratio 12 Ratio (12-20); Basophils % (Auto) 1 % (0-2.5); Bilirubin,Total 1.1 mg/dL (0.3-1.2); Blood Urea Nitrogen 14 mg/dL (9-23); Calcium 8.3 mg/dL (8.3-10.6); Calcium (Corrected) 8.3 mg/dL (8.5-10.1); Carbon Dioxide 23.6 mMol/L (20.0-31.0); Chloride 110 mMol/L (98-107); Creatinine (Component) 1.2 mg/dL (0.6-1.3); Eosinophils # (Auto) 0.3 Thou/mm3 (0.0-0.5); Eosinophils % (Auto) 4 % (0-10); Estimated Creatinine Clearance 43.5 mL/min (>60); Globulin 2.9 gm/dL (2.3-3.5); Glucose 155 mg/dL (74-106); Hemoglobin 12.7 g/dL (13.5-16.0); Immature Granulocytes % (Auto) 0 % (0-0); Immature Granulocytes Auto 0.02 Thou/mm3 (0.00-0.00); Lymphocytes % (Auto) 27 % (10-50); Mean Corpuscular HGB Conc 33.4 g/dl (31.0-37.0); Mean Corpuscular Hemoglobin 29.3 pg (25.0-35.0); Mean Corpuscular Volume 88 fL (80-100); Monocytes # (Auto) 0.6 Thou/mm3 (0.0-0.8); Monocytes % (Auto) 7 % (0-12); Neutrophils # (Auto) 4.7 Thou/mm3 (1.8-7.7); Neutrophils % (Auto) 62 % (37-80); Nucleated Red Blood Cell % 0 /100 WBC (0); Osmolality,Calculated 284 (275-295); Phosphorous 1.6 mg/dL (2.4-5.1); Platelet Count 234 Thou/mm3 (140-440); Potassium 4.6 mMol/L (3.4-5.1); RDW Standard Deviation 40.4 fL (35.1-43.9); Red Blood Count 4.33 Miln/mm3 (4.50-5.90); Sodium 141 mMol/L (136-145); White Blood Count 7.6 Thou/mm3 (3.8-10.6); eGFR 59 See Note
[2024-10-22] MEDS: SUCRALFATE SUSP 1 GM/10 ML UDC PO ×4 (08:51→20:26)
[2024-10-22] MEDS: TAMSULOSIN HCL 0.4 MG CAPSULE PO (08:51)
--- NOTE | 2024-10-22 09:44 | ECHO_ITS ---
Transthoracic Echo Report Ht (in): 65 Wt (lb): 173 Exam Location: Portable Status: Inpatient Learning Manager: MAYNOR Saleem^^^^ Indications: Procedure Performed: BP: / HR: MEASUREMENTS (Male / Female) Normal Values 2D ECHO LV Diastolic Diameter PLAX 4.9 cm 4.2 - 5.9 / 3.9 - 5.3 cm LV Systolic Diameter PLAX 3.2 cm IVS Diastolic Thickness 1.1 cm 0.6 - 1.0 / 0.6 - 0.9 cm LVPW Diastolic Thickness 1.1 cm 0.6 - 1.0 / 0.6 - 0.9 cm LV Relative Wall Thickness 0.5 LVOT Diameter 1.7 cm Aortic Root Diameter 3.1 cm LA Systolic Diameter LX 3.3 cm 3.0 - 4.0 / 2.7 - 3.8 cm DOPPLER AV Peak Velocity 133.0 cm/s AV Peak Gradient 7.1 mmHg AV Mean Gradient 5.0 mmHg AV Velocity Time Integral 41.9 cm AI Peak Velocity 251.0 cm/s AI Peak Gradient 25.2 mmHg AI Pressure Half Time 1162.0 ms LVOT Peak Velocity 104.0 cm/s LVOT Peak Gradient 4.3 mmHg LVOT Velocity Time Integral 26.8 cm AV Area Cont Eq vti 1.5 cm? AV Area Cont Eq pk 1.8 cm? MV Area PHT 3.1 cm? Mitral E Point Velocity 89.4 cm/s Mitral A Point Velocity 69.7 cm/s Mitral E to A Ratio 1.3 LV E' Lateral Velocity 5.3 cm/s Mitral E to LV E' Lateral Ratio 16.7 LV E' Septal Velocity 6.0 cm/s Mitral E to LV E' Septal Ratio 15.0 TR Peak Velocity 299.3 cm/s TR Peak Gradient 35.8 mmHg PV Peak Velocity 122.0 cm/s PV Peak Gradient 6.0 mmHg RVOT Peak Velocity 66.5 cm/s FINDINGS Left Ventricle Normal left ventricular size, wall thickness, systolic function with no obvious regional wall motion abnormalities. There is grade I diastolic dysfunction of the left ventricle (impaired relaxation pattern). The left ventricular ejection fraction is normal, estimated at 60-65% Right Ventricle The right ventricle is normal in size and systolic function. The estimated right ventricular systolic pressure, 37 mmHg. Left Atrium The left atrium is normal by two-dimensional, color flow and Doppler imaging with no structural abnormalities, no thrombus formation present. Right Atrium The right atrium is normal by two-dimensional imaging, color flow and Doppler imaging with no structural abnormalities, no thrombus formation present. Atrial Septum The interatrial septum appears normal with no evidence of a shunt. Aorta The aorta is normal by two-dimensional, color flow and Doppler interrogation. Mitral Valve Mild mitral regurgitation. Mild mitral annular calcification. Aortic Valve Aortic valve sclerosis. Mild aortic valve regurgitation. Tricuspid Valve There is mild tricuspid valve regurgitation. Pulmonic Valve The pulmonic valve is not well visualized. There is no significant pulmonic valve regurgitation. Vessels The pulmonary artery appears normal. The inferior vena cava pulmonary and hepatic veins appear normal. Pericardium The pericardium is normal by two-dimensional imaging. There is no significant pericardial effusion. CONCLUSIONS indication: Bradycardia LV appears normal with EF 60-65%. Diastolic Dysfunction II. RV appears normal with RVSP 37 mmHg. Mild MR & TR AOV sclerosis Mild TR Alex Pelaez (Electronically Signed) Final Date: 22 Oct 2024 12:00
--- NOTE | 2024-10-22 13:00 | PD.IMCONS ---
HPI Data of Consult Requesting Physician: Karolyn Garcia DO Primary Care Provider: Physician No Primary/Family Consult Narrative History of present illness: This is a 84-year-old malePast medical history of hypertension diabetes hyperlipidemia presented to the ER with the chief complaint of dark bloody stool. On specific questioning he also admits to having atypical chest pain Cardiology also consulted His EKG shows bradycardia heart rate 42 bpmBlood pressure remained stable He already had an echocardiographic exam which shows normal LV size and functionNo significant valve dysfunction noted cc:: cc: Karolyn Garcia DO Meds Home Medications and Allergies Home Medications ?Medication ?Instructions ?Recorded ?Confirmed ?Type tamsulosin 0.4 mg capsule (Flomax) 0.4 mg PO QDAY ##0 04/10/15 03/14/24 History glimepiride 4 mg tablet 4 mg PO QDAY ##60 08/17/16 03/14/24 History lisinopril 10 mg tablet 20 mg PO QDAY ##30 08/17/16 03/14/24 History atenolol 50 mg tablet 50 mg PO QDAY 03/14/24 03/14/24 History rosuvastatin 20 mg tablet 20 mg PO QDAY 03/14/24 03/14/24 History sitagliptin phosphate 50 mg tablet 50 mg PO QDAY 03/14/24 03/14/24 History (Januvia) Allergies Allergy/AdvReac Type Severity Reaction Status Date / Time No Known Allergies Allergy Verified 03/14/24 13:20 Exam Vital Signs Temp Pulse Resp BP Pulse Ox O2 Del Method O2 Flow Rate 97.7 F 51 L 25 H 128/57 L 97 Room Air 3 10/22/24 12:00 10/22/24 12:00 10/22/24 12:00 10/22/24 12:00 10/22/24 12:00 10/22/24 12:00 10/21/24 14:09 Routine HEENT Exam Head: Present normocephalic and atraumatic Eye: Present EOMI and PERRL ENT: Present mucous membranes moist Routine Neck Exam Neck: Present supple and trachea midline Routine Respiratory Exam Respiratory: Present chest non-tender, lungs clear, normal breath sounds and no resp distress Routine Cardiovascular Exam Cardiovascular: Present RRR Routine Abdominal Exam Abdominal: Present soft and normoactive bowel sounds Routine Extremities Exam Extremities: Present full ROM Routine Skin Exam Skin: Present intact, dry and warm Routine Neurological Exam Neurological: Present alert, oriented X3 and CN II-XII intact Routine Psychiatric Exam Psychiatric: Present normal affect and normal thought process Results Labs 10/22/24 07:36 10/22/24 07:36 Labs: Short CBC 10/22/24 Range/Units 07:36 WBC 7.6 (3.8-10.6) Thou/mm3 Hgb 12.7 L (13.5-16.0) g/dL Hct 38.0 L (41.0-53.0) % Plt Count 234 (140-440) Thou/mm3 BMP 10/21/24 10/22/24 17:06 07:36 Sodium 138 141 Potassium 4.5 D 4.6 Chloride 109 H 110 H Carbon Dioxide 20.9 23.6 BUN 20 14 Creatinine 1.3 1.2 Glucose 151 H 155 H Calcium 8.8 8.3 Liver Function 10/22/24 Range/Units 07:36 Total Bilirubin 1.1 (0.3-1.2) mg/dL AST 19 (0-34) U/L ALT 18 (10-49) U/L Alkaline Phosphatase 60 (46-116) U/L Albumin 4.1 (3.4-4.8) gm/dL Assessment and Plan Assessment and plan (1) Upper gastrointestinal bleed: Status: Acute (2) Hypertension: Status: Acute (3) Diabetes 1.5, managed as type 2: Status: Acute (4) Bradycardia: Status: Acute Additional Assessment & Plan Additional Plan: Patient complains of atypical pain Heart rate dropped down to the 40s Patient is essentially asymptomatic from thisTroponins are negative Echo is unremarkable Continue current medical management
--- NOTE | 2024-10-22 13:43 | ESPR_ITS ---
Documentation for date of: 10/22/24 Subjective Subjective Interval history: Hemoglobin hematocrit 12.7 and 38.0 Advance to peptic ulcer disease diet If the hemoglobin is stable tomorrow can be discharged home on PPI twice daily Anticoagulation needed can be continued Exam Vital Signs Temp Pulse Resp BP Pulse Ox O2 Del Method O2 Flow Rate 97.7 F 51 L 25 H 128/57 L 97 Room Air 3 10/22/24 12:00 10/22/24 12:00 10/22/24 12:00 10/22/24 12:00 10/22/24 12:00 10/22/24 12:00 10/21/24 14:09 Objective Labs 10/22/24 07:36 10/22/24 07:36 Labs: Laboratory Results - last 24 hr 10/21/24 10/22/24 17:06 07:36 WBC 7.6 RBC 4.33 L Hgb 12.7 L Hct 38.0 L MCV 88 MCH 29.3 MCHC 33.4 RDW Std Deviation 40.4 Plt Count 234 Neut % (Auto) 62 Lymph % (Auto) 27 [place] % (Auto) 7 Eos % (Auto) 4 Baso % (Auto) 1 Neut # (Auto) 4.7 Lymph # (Auto) 2.0 [place] # (Auto) 0.6 Eos # (Auto) 0.3 Baso # (Auto) 0.0 Immature Gran # (Auto) 0.02 H Absolute Nucleated RBC 0.00 Immature Gran % 0 Nucleated RBC % 0 Sodium 138 141 Potassium 4.5 D 4.6 Chloride 109 H 110 H Carbon Dioxide 20.9 23.6 Anion Gap 8 7 BUN 20 14 Creatinine 1.3 1.2 Estim Creat Clear Calc 40.1 L 43.5 L eGFR 54 L 59 L BUN/Creatinine Ratio 20 12 Glucose 151 H 155 H Calculated Osmolality 273 L 284 Calcium 8.8 8.3 Corrected Calcium 8.3 L Phosphorus 1.6 L Magnesium 2.0 Total Bilirubin 1.1 AST 19 ALT 18 Alkaline Phosphatase 60 Total Protein 7.0 Albumin 4.1 Globulin 2.9 Albumin/Globulin Ratio 1.4 Impressions Impression: Gastric ulcer Duodenal ulcer Plan as under HPI Assessment & Plan A&P Narrative Patient complains of atypical pain Heart rate dropped down to the 40s Patient is essentially asymptomatic from thisTroponins are negative Echo is unremarkable Continue current medical management Time Spent With Patient Time: Total time spent is greater than 50% in coordination of care (as documented) at patient's floor/unit and/or counseling patient:
--- NOTE | 2024-10-22 16:37 | ESPR_ITS ---
Documentation for date of: 10/22/24 Subjective Subjective Interval history: Patient was seen and examined at bedside this AM. No acute events overnight. He is tolerating liquid diet, adequate urine output and mentation is at baseline. EGD showed gastric and duodenal ulcer, non bleeding at this time but at high risk of bleeding. GI recommends liquid diet and starting protonix gtt, maalox and carafate. Patient endorses improvement of abdominal pain. Will advance diet as per GI recommendations. Cardiology Dr Pelaez is consulted, pending recommendations for new onset AFib. Exam Vital Signs Temp Pulse Resp BP Pulse Ox O2 Del Method O2 Flow Rate 97.7 F 51 L 25 H 128/57 L 97 Room Air 3 10/22/24 12:00 10/22/24 12:00 10/22/24 12:00 10/22/24 12:00 10/22/24 12:00 10/22/24 12:00 10/21/24 14:09 Narrative Exam Constitutional Alert, oriented x3 and comfortable HEENT Vision grossly intact. Patent nares. Trachea midline. Respiratory Chest normal on inspection and clear to auscultation bilaterally. Cardiovascular S1 and S2 audible, RRR, bradycardia HR 51-55bpm. No murmurs or carotid bruit. No gross JVD. Abdominal Soft and non tender to palpation in all quadrants. BS + Genitourinary No bladder tenderness, no flank pain. Normal to palpation. Musculoskeletal Extremities tone within normal limits. No LE edema. Neurological CN II - XII grossly intact. Extremity motor and sensation grossly intact. Skin Warm, dry and intact. Senile purpurae. Psychiatric Patient has a good affect, is cooperative. Objective Labs 10/23/24 05:23 10/23/24 05:23 Labs: Laboratory Results - last 24 hr 10/21/24 10/22/24 17:06 07:36 WBC 7.6 RBC 4.33 L Hgb 12.7 L Hct 38.0 L MCV 88 MCH 29.3 MCHC 33.4 RDW Std Deviation 40.4 Plt Count 234 Neut % (Auto) 62 Lymph % (Auto) 27 [place] % (Auto) 7 Eos % (Auto) 4 Baso % (Auto) 1 Neut # (Auto) 4.7 Lymph # (Auto) 2.0 [place] # (Auto) 0.6 Eos # (Auto) 0.3 Baso # (Auto) 0.0 Immature Gran # (Auto) 0.02 H Absolute Nucleated RBC 0.00 Immature Gran % 0 Nucleated RBC % 0 Sodium 138 141 Potassium 4.5 D 4.6 Chloride 109 H 110 H Carbon Dioxide 20.9 23.6 Anion Gap 8 7 BUN 20 14 Creatinine 1.3 1.2 Estim Creat Clear Calc 40.1 L 43.5 L eGFR 54 L 59 L BUN/Creatinine Ratio 20 12 Glucose 151 H 155 H Calculated Osmolality 273 L 284 Calcium 8.8 8.3 Corrected Calcium 8.3 L Phosphorus 1.6 L Magnesium 2.0 Total Bilirubin 1.1 AST 19 ALT 18 Alkaline Phosphatase 60 Total Protein 7.0 Albumin 4.1 Globulin 2.9 Albumin/Globulin Ratio 1.4 Quality Measures Quality Measures none Advance care planning discussed with:: patient and child Assessment & Plan Assessment Current Active Medications: Generic Name Dose Route Start Last Admin Trade Name Freq PRN Reason Stop Dose Admin Al Hydrox/Mg Hydrox/Simethicone 15 ml 10/21/24 14:45 10/22/24 14:10 Mg Hyd/Al Hyd/Max (Maalox Reg) Susp 30 Ml Udc PO 11/20/24 14:44 15 ml Q4HR ROSS Administration Amlodipine Besylate 5 mg 10/22/24 21:00 Amlodipine Besylate 5 Mg Tablet PO 11/21/24 20:59 HS ROSS Dextrose 25 ml 10/19/24 23:40 Dextrose 50%-Water Inj 50 Ml Syringe IV 11/18/24 23:39 Q15MIN PRN BG 50-70 responsive npo pt Dextrose 50 ml 10/19/24 23:40 Dextrose 50%-Water Inj 50 Ml Syringe IV 11/18/24 23:39 Q15MIN PRN BG <50 OR BG <70 & pt unresponsive Glucagon 1 mg 10/20/24 08:12 Glucagon Inj 1 Mg Vial IM Q15MIN PRN BG <70, and no IV access Sodium Chloride 1,000 mls @ 100 mls/hr 10/19/24 23:45 10/22/24 05:26 Ns IV 11/18/24 23:44 100 mls/hr .Q10H ROSS Administration Pantoprazole Sodium 80 mg in 100 mls @ 10 mls/hr 10/20/24 09:45 10/22/24 11:12 Protonix/Ns 80mg Iv Premix IV 10/22/24 21:44 10 mls/hr Q10H ROSS Administration Insulin Human Lispro 0 unit 10/21/24 07:30 10/22/24 11:15 Insulin Lispro (Admelog) 1 Unit/0.01 Ml Unit SC 11/20/24 07:29 Not Given ACHS ROSS Protocol Sucralfate 1 gm 10/21/24 17:00 10/22/24 11:12 Sucralfate Susp 1 Gm/10 Ml Udc PO 11/20/24 16:59 1 gm ACHS ROSS Administration Tamsulosin HCl 0.4 mg 10/21/24 09:00 10/22/24 08:51 Tamsulosin Hcl 0.4 Mg Capsule PO 11/20/24 08:59 0.4 mg QDAY ROSS Administration Plan 84-year-old male with past medical history of diabetes and hypertension who presented to the ED due to dark bloody stools and abdominal pain. Patient was admitted for upper GI bleed GI was consulted will await further recommendations. Upper GI Bleed H.Pylori infection, pending rule out Melena, dizziness, acute drop in Hb (12.5 from baseline 14.9), history of gastritis/esophagitis on prior EGD, hemodynamically stable (HR 46, BP 133/59), no overt signs of hypovolemia Apparently had H. pylori infection sometime ago however due to changing insurance did not get results after H. pylori treatment. ? EGD 10/21 : gastric and duodenal ulcer, non bleeding at this time but at high risk of bleeding. Plan: ? As per GI recommendations, Liquid diet only Protonix gtt 8mg/h Maalox 15ml qD Carafate QID ACHS - Ulcers are high risk for bleeding, will advance diet as recommended by GI ? Monitor hemoglobin. Transfuse if hemoglobin less than 7 - H.Pylori stool Ag result: pending A.FIB w/ SVR No symptoms at this time, no syncope no chest pain Patient would likely benefit with outpatient cardiology in regards to the patient's bradycardia. At this time patient does not have any symptoms with heart rate in the 40s - EKG: A. Fib with SVR, HR 50s - Type: New onset, paroxysmal. - Intermittent episodes of palpitations with spontaneous return to sinus - CHADsVASc score = 4 ; 4.8% stroke risk annually - HASBLED score = 1 ; Mlowoderate risk of major bleeding Plan: - Cardiology Dr Pelaez is consulted, pending recommendations for new onset AFib. - Continue to monitor Telemetry ? Monitor heart rate on telemetry as well as rhythm ? Keep K>4, Mg>2 ? Echo taken, pending read. Acute on chronic CKD stage IIIA?resolved Baseline creatinine ~1.4-1.5, likely prerenal in the setting of upper GI bleed Received IV fluids Plan: ? Avoid nephrotoxins ? Renally dose medications Hyperkalemia - resolved Hypophosphatemia Hypocalcemia Upon chart review patient's potassium has been above 5 numerous times, could likely be contributing to the patients bradycardia, patient would likely benefit at the time of discharge, schedule Gisele, Plan: - Neutra phos x2 packets - Calcium carbonate x1 tab - Monitor daily CMP Primary Hypertension Currently normal to hypotensive in the setting of GI bleed ? Avoid resuming antihypertensives during acute illness Diabetes mellitus type 2 Plan: ? On SSI w/ accuchecks ? Hypoglycemia protocol in place Health maintenance: Disposition: tele, bradycardic and gi bleed Fluids: None Feeding: NPO, possible GI intervention Thrombo prophylaxis: SCDs Gastric Ulcer prophylaxis: Pantoprazole CODE STATUS: Full code Plan of care discussed with attending Shila Toro M.D. PGY2 Disclaimer: Minor errors in security agent may be present as this note was dictated using voice recognition software. Attending Provider Attestation/Addendum Karolyn Ley, DO, attest that I was physically present for the owen portions of the service and evaluated the patient with the resident and I reviewed and discussed the case with the resident and agree with the resident's findings and plans of care as documented above Patient seen and evaluated this AM. Patient reports mild chest pain. He remains bradycardic with slow afib. CHADSVASC of 4. However, EGD was done yesterday nonbleeding gastric ulcer with clean base [Estrada class III], gastritis with erythema, nonbleeding duodenal ulcer with a clean base [Estrada class III]. Patient was advanced to full liquid diet and started on Protonix drip. He is also to continue Carafate and Maalox. Per GI, patient is high risk of rebleed. Will slowly advance diet as per GI and monitor hemoglobins closely. Cardio has been consulted for slow A-fib. Echo was done today showing EF of 60 to 65% with right ventricular pressures of 37 mmHg, mild MR and TR, aortic valve sclerosis. Will follow-up with cardiology recommendations. If patient remains stable, anticipate discharge within the next 24 to 48 hours.
[2024-10-22] MEDS: CALCIUM CARBONATE 600 MG TABLET PO (19:33)
[2024-10-22] MEDS: NAPH,KPH MBDB 1 PACKET (1.5 GM) PO ×2 (19:33)
[2024-10-22] MEDS: amLODIPine BESYLATE 5 MG TABLET PO (20:26)
[2024-10-22] MEDS: INSULIN LISPRO (AdmeLOG) 1 UNIT/0.01 ML UNIT SC (20:26)
[2024-10-23] VITALS: BP 129/71; PULSE 43; PULSE 45; RESP 12; TEMP 36.8; O2SAT 99
[2024-10-23] MEDS: MG HYD/AL HYD/SIME (Maalox Reg) SUSP 30 ML UDC 15 ML PO ×3 (02:01→10:55)
[2024-10-23 04:00] VITALS: BP 121/70; PULSE 40; PULSE 44; RESP 12; TEMP 36.4; O2SAT 100
[2024-10-23 05:54] VITALS: BMI 28.8
[2024-10-23 06:04] LABS: Basophils % (Auto) 1 % (0-2.5); Eosinophils # (Auto) 0.3 Thou/mm3 (0.0-0.5); Eosinophils % (Auto) 6 % (0-10); Hematocrit 33.2 % (41.0-53.0); Hemoglobin 11.1 g/dL (13.5-16.0); Immature Granulocytes % (Auto) 0 % (0-0); Immature Granulocytes Auto 0.01 Thou/mm3 (0.00-0.00); Lymphocytes # (Auto) 1.4 Thou/mm3 (1.0-4.8); Lymphocytes % (Auto) 26 % (10-50); Mean Corpuscular HGB Conc 33.4 g/dl (31.0-37.0); Mean Corpuscular Volume 87 fL (80-100); Monocytes # (Auto) 0.6 Thou/mm3 (0.0-0.8); Monocytes % (Auto) 10 % (0-12); Neutrophils % (Auto) 56 % (37-80); Nucleated Red Blood Cell % 0 /100 WBC (0); Platelet Count 190 Thou/mm3 (140-440); RDW Standard Deviation 40.3 fL (35.1-43.9); Red Blood Count 3.83 Miln/mm3 (4.50-5.90); White Blood Count 5.4 Thou/mm3 (3.8-10.6)
[2024-10-23] MEDS: SODIUM CHLORIDE 0.9% 1000 ML 1,000 ML 100 ML IV (06:17)
[2024-10-23 06:27] LABS: Alanine Aminotransferase 12 U/L (10-49); Albumin, Serum 3.7 gm/dL (3.4-4.8); Albumin/Globulin Ratio 1.5 (1.2-2.2); Alkaline Phosphatase 50 U/L (46-116); Anion Gap 10 (7-16); Aspartate Amino Transferase 15 U/L (0-34); BUN/Creatinine Ratio 8 Ratio (12-20); Bilirubin,Total 0.8 mg/dL (0.3-1.2); Blood Urea Nitrogen 10 mg/dL (9-23); Calcium 8.5 mg/dL (8.3-10.6); Calcium (Corrected) 8.7 mg/dL (8.5-10.1); Carbon Dioxide 24.3 mMol/L (20.0-31.0); Chloride 109 mMol/L (98-107); Creatinine (Component) 1.3 mg/dL (0.6-1.3); Estimated Creatinine Clearance 39.3 mL/min (>60); Globulin 2.4 gm/dL (2.3-3.5); Glucose 155 mg/dL (74-106); Magnesium 1.9 mg/dL (1.6-2.6); Osmolality,Calculated 286 (275-295); Phosphorous 2.3 mg/dL (2.4-5.1); Potassium 4.5 mMol/L (3.4-5.1); Sodium 143 mMol/L (136-145); Total Protein 6.1 gm/dL (5.7-8.2); eGFR 54 See Note
[2024-10-23 08:00] VITALS: BP 129/70; PULSE 52; PULSE 95; RESP 20; TEMP 36.3; O2SAT 97
[2024-10-23] MEDS: SUCRALFATE SUSP 1 GM/10 ML UDC PO ×2 (08:10→11:47)
[2024-10-23] MEDS: TAMSULOSIN HCL 0.4 MG CAPSULE PO (08:10)
[2024-10-23] MEDS: NAPH,KPH MBDB 1 PACKET (1.5 GM) PO (08:14)
[2024-10-23] MEDS: Magnesium Sulfate 2 GM Ivpb 2 GM/50 ML BAG IV (08:14)
--- NOTE | 2024-10-23 09:56 | ESDS_ITS ---
<Statement entered by Karolyn Garcia DO - 10/24/24 07:41> I, Karolyn Garcia DO, attest that I was physically present for the owen portions of the service and evaluated the patient with the resident and I reviewed and discussed the case with the resident and agree with the resident's findings and plans of care as documented above Planned Discharge Date 10/23/24 DS: Providers Provider Date of admission: 10/19/24 23:39 Primary care physician: Physician No Primary/Family Admitting Provider: Wayne Marrufo MD Attending Provider on Admission: Karolyn Garcia DO Consults: 10/19/24 23:40 Consult to Gastroenterology Routine Comment: Consulting Provider: Will Ricardo 10/22/24 07:42 Consult to Cardiology Routine Comment: New AFib Consulting Provider: Brad Pelaez Attending Provider on DC: Karolyn Garcia DO Discharging Provider: Jered Gunderson MD Anticipated date of discharge: 10/23/24 DS: Diagnosis Problem List Completed Was Problem List Reviewed/Reconciled?: Yes Hospital Course Hospital Course Hospital course: 84-year-old male with past medical history of diabetes, hypertension who presented to the ED due to dark bloody stools and abdominal pain. Patient was admitted for upper GI bleed workup. During hospital stay patient was evaluated by GI services performed endoscopy was found with gastric and duodenal nonbleeding ulcers [Estrada 3] and was treated with Protonix, Maalox, Carafate. At this time patient is medically stable for discharge. Follow up with primary care physician within 1 week of discharge. Follow up with Cardiology within 2 weeks of discharge, in regards to starting anticoagulation Eliquis for atrial fibrillation. Follow up with [facility] within 2 weeks of discharge to follow up on final H. Pylori testing patient did receive treatment for H. Pylori prior to admission and was pending results. Atenolol has been put on HOLD due to low heart rate, please do not take this medication until you are seen by Cardiology. You have been prescribed Protonix twice a day, please take medication as prescribed. Should any symptoms recur or worsen patient is instructed to return to the ED. Problem list: #Upper GI bleed #H. pylori infection-pending rule out #A-fib with SVR #Acute on chronic CKD stage IIIa?resolved #Hyperkalemia?resolved #Hypophosphatemia #Hypocalcemia #Hypertension #Diabetes mellitus type 2 Case discussed with my attending Dr. Jose Gunderson MD PGY-1 Status at Discharge Functional status at discharge: independent ambulation Overall status at discharge: patient is back to baseline Time Spent with Patient Time attestation: Total time spent providing and/or coordinating discharge services: Time spent: Greater than 30 minutes Exam Vital Signs Temp Pulse Resp BP Pulse Ox O2 Del Method O2 Flow Rate 97.4 F 52 L 20 129/70 97 Room Air 3 10/23/24 08:00 10/23/24 08:00 10/23/24 08:00 10/23/24 08:00 10/23/24 08:00 10/23/24 08:00 10/23/24 00:00 Narrative Exam Physical Exam GENERAL: NAD, AAOx3 HEENT: Moist mucosa. Eyes open, symmetrical, & clear CARDIO: Heart irregular, bradycardic, no obvious murmurs PULM: No noted coughing/dyspnea CTA B/L, no R/W/R GI: Abdomen soft, nondistended, no pain on palpation. BSx4 SKIN/MSK/EXT: No wounds/rashes/edema/amputations, no pain on palpation. Pedal pulses present B/L NEURO: AAOx3, no focal neuro deficits, able to move all 4 extremities Discharge Plan Plan Patient Disposition: HOME (Self Care) Care Plan Goals: Follow up with primary care physician within 1 week of discharge Follow up with Cardiology within 2 weeks of discharge, in regards to starting anticoagulation Eliquis for atrial fibrillation. Follow up with [facility] within 2 weeks of discharged Atenolol has been put on HOLD due to low heart rate, please do not take this medication until you are seen by Cardiology You have been prescribed Protonix twice a day, please take medication as prescribed Should any symptoms recur or worsen patient is instructed to return to the ED. Prescriptions/Referrals Prescriptions/Med Rec: New pantoprazole 40 mg tablet,delayed release (DR/EC) 40 mg PO BID 30 Days Qty: 60 0RF Continued tamsulosin [Flomax] 0.4 MG capsule,extended release 24hr 0.4 mg PO QDAY Qty: 0 lisinopril 10 MG tablet 20 mg PO QDAY Qty: 30 glimepiride 4 MG tablet 4 mg PO QDAY Qty: 60 rosuvastatin 20 mg tablet 20 mg PO QDAY Patient Comments: TAKE 1 TABLET BY MOUTH EVERY DAY Januvia 50 mg tablet 50 mg PO QDAY Patient Comments: TAKE 1 TABLET BY MOUTH EVERY DAY Held atenolol 50 mg tablet 50 mg PO QDAY Hold Instructions: Resume on 11/13/24. hold until seen by Cardiology Patient Comments: TAKE 1 TABLET BY MOUTH TWICE A DAY Referrals: Will Ricardo MD [Physician] - No Primary/Family,Physician [Primary Care Provider] - Brad Pelaez MD [Physician] - Patient/Caregiver Discharge Instructions Education Materials: Bleeding Gastrointestinal Print Language: Hebrew Stand Alone Forms: Sophie Award Info., Patient Portal Info Letter Discharge Order Discharge Orders: Discharge (Routine); Ordered 10/23/24 Ordered By: Jered Gunderson Quality Discharge Quality Measures VTE prophylaxis
--- NOTE | 2024-10-23 10:30 | PC.SS ---
[facility] [employer] conducted bedside contact with the patient conduct initial assessment and to discuss discharge planning.? At bedside with patient was granddaughter, Berenice Herrera.? Information obtained from patient?s granddaughter.? Patient resides at home with spouse.? Patient does not utilize DME to assist with ambulation.? Patient does not require use of home oxygen.? Patient is able to complete ADL?s independently.? Patient?s surrogate medical decision maker is daughter, Merline Herrera .? Patient?s PCP is Dr. Keyes, [facility].? Patient does not possess any specialty providers.? Patient utilizes [facility] for medication services.? Discharge plan is for the patient to transition home.? Family will provide transportation for the patient at the time of discharge.? No further discharge needs identified by the patient.? No further intervention required at this time, nursing home social worker will be available to address any further concerns.? Next of Kin: Merline Herrera D/C Plan: Home
[2024-10-23 12:00] VITALS: BP 144/67; PULSE 60; PULSE 65; RESP 26; TEMP 36.4; O2SAT 99
--- NOTE | 2024-10-23 22:16 | ESPR_ITS ---
Documentation for date of: 10/23/24 Subjective Subjective Interval history: Late entry for the note Slight drop in hemoglobin hematocrit But no signs of active bleeding okay to discharge the patient home to be followed as an outpatient Exam Vital Signs Temp Pulse Resp BP Pulse Ox O2 Del Method O2 Flow Rate 97.5 F 65 26 H 144/67 H 99 Room Air 3 10/23/24 12:00 10/23/24 12:00 10/23/24 12:00 10/23/24 12:00 10/23/24 12:00 10/23/24 12:00 10/23/24 00:00 Objective Labs 10/23/24 05:23 10/23/24 05:23 Labs: Laboratory Results - last 24 hr 10/23/24 05:23 WBC 5.4 RBC 3.83 L Hgb 11.1 L Hct 33.2 L MCV 87 MCH 29.0 MCHC 33.4 RDW Std Deviation 40.3 Plt Count 190 D Neut % (Auto) 56 Lymph % (Auto) 26 [place] % (Auto) 10 Eos % (Auto) 6 Baso % (Auto) 1 Neut # (Auto) 3.0 Lymph # (Auto) 1.4 [place] # (Auto) 0.6 Eos # (Auto) 0.3 Baso # (Auto) 0.0 Immature Gran # (Auto) 0.01 H Absolute Nucleated RBC 0.00 Immature Gran % 0 Nucleated RBC % 0 Sodium 143 Potassium 4.5 Chloride 109 H Carbon Dioxide 24.3 Anion Gap 10 BUN 10 Creatinine 1.3 Estim Creat Clear Calc 39.3 L eGFR 54 L BUN/Creatinine Ratio 8 L Glucose 155 H Calculated Osmolality 286 Calcium 8.5 Corrected Calcium 8.7 Phosphorus 2.3 L Magnesium 1.9 Total Bilirubin 0.8 AST 15 ALT 12 Alkaline Phosphatase 50 Total Protein 6.1 Albumin 3.7 Globulin 2.4 Albumin/Globulin Ratio 1.5 Impressions Impression: Duodenal ulcer Gastric ulcer Okay to discharge patient home on PPI twice daily Assessment & Plan A&P Narrative Patient complains of atypical pain Heart rate dropped down to the 40s Patient is essentially asymptomatic from thisTroponins are negative Echo is unremarkable Continue current medical management Time Spent With Patient Time: Total time spent is greater than 50% in coordination of care (as documented) at patient's floor/unit and/or counseling patient:
[2024-10-25 06:38] LABS: Helicobacter pylori Ag, Stool* NOT DETECTED (NOT DETECTED)
== END 2024-10-23 14:18 | disposition home or self-care (01) | DRG 377 ==
LOC: SERX 23:39 → SERHOLD 10-20 00:08 → S2NX 10-21 03:51
PROVIDERS: Nurse Practitioner Primary Care; Specialist; Student in an Organized Health Care Education/Training Program; Admitting Provider Internal Medicine; Emergency Provider Emergency Medicine; Visit Provider Internal Medicine
PROC: (CPT 43239; principal; 2024-10-21 12:15)
DX: K25.0 Acute gastric ulcer with hemorrhage (principal); K20.91 Esophagitis, unspecified with bleeding; N17.9 Acute kidney failure, unspecified; K26.0 Acute duodenal ulcer with hemorrhage; N18.31 Chronic kidney disease, stage 3a; I12.9 Hypertensive chronic kidney disease with stage 1 through stage 4 chronic kidney disease, or unspecified chronic kidney disease; E11.65 Type 2 diabetes mellitus with hyperglycemia; R00.1 Bradycardia, unspecified; E87.5 Hyperkalemia; E78.5 Hyperlipidemia, unspecified; E11.22 Type 2 diabetes mellitus with diabetic chronic kidney disease; E87.6 Hypokalemia; K26.4 Chronic or unspecified duodenal ulcer with hemorrhage; K64.8 Other hemorrhoids; K57.31 Diverticulosis of large intestine without perforation or abscess with bleeding; E83.51 Hypocalcemia; E83.39 Other disorders of phosphorus metabolism; I35.8 Other nonrheumatic aortic valve disorders; I95.9 Hypotension, unspecified; Z86.19 Personal history of other infectious and parasitic diseases; Z79.84 Long term (current) use of oral hypoglycemic drugs; Z79.899 Other long term (current) drug therapy
CPT/HCPCS: 36415; 71045; 80048; 80053; 81001; 83690; 83735; 83880; 84100; 84484; 85025; 85610; 85730; 86850; 86900; 86901; 87338; 93005; 93306; 96365; 96366; 96367; 99285; J1815; J2250; J3010; J3475; J3490; J7030; A9270

== ENCOUNTER → 2024-10-30 | Outpatient (CLI) | payer MEDICARE, MEDICAID, SELFPAY ==
[2024-10-30 11:27] LABS: Basophils # (Auto) 0.1 Thou/mm3 (0.0-0.2); Basophils % (Auto) 1 % (0-2.5); Eosinophils # (Auto) 0.1 Thou/mm3 (0.0-0.5); Eosinophils % (Auto) 1 % (0-10); Hematocrit 38.6 % (41.0-53.0); Hemoglobin 12.9 g/dL (13.5-16.0); Immature Granulocytes % (Auto) 0 % (0-0); Immature Granulocytes Auto 0.02 Thou/mm3 (0.00-0.00); Lymphocytes # (Auto) 1.7 Thou/mm3 (1.0-4.8); Lymphocytes % (Auto) 21 % (10-50); Mean Corpuscular HGB Conc 33.4 g/dl (31.0-37.0); Mean Corpuscular Hemoglobin 29.3 pg (25.0-35.0); Mean Corpuscular Volume 88 fL (80-100); Monocytes # (Auto) 0.7 Thou/mm3 (0.0-0.8); Monocytes % (Auto) 9 % (0-12); Neutrophils # (Auto) 5.2 Thou/mm3 (1.8-7.7); Neutrophils % (Auto) 67 % (37-80); Nucleated Red Blood Cell % 0 /100 WBC (0); Platelet Count 201 Thou/mm3 (140-440); RDW Standard Deviation 43.3 fL (35.1-43.9); Red Blood Count 4.41 Miln/mm3 (4.50-5.90); White Blood Count 7.7 Thou/mm3 (3.8-10.6)
[2024-10-30 11:38] LABS: Alanine Aminotransferase 13 U/L (10-49); Albumin, Serum 4.6 gm/dL (3.4-4.8); Albumin/Globulin Ratio 1.7 (1.2-2.2); Alkaline Phosphatase 59 U/L (46-116); Anion Gap 10 (7-16); Aspartate Amino Transferase 19 U/L (0-34); BUN/Creatinine Ratio 14 Ratio (12-20); Bilirubin,Total 0.7 mg/dL (0.3-1.2); Blood Urea Nitrogen 21 mg/dL (9-23); Calcium 9.3 mg/dL (8.3-10.6); Calcium (Corrected) 9.3 mg/dL (8.5-10.1); Carbon Dioxide 25.1 mMol/L (20.0-31.0); Chloride 106 mMol/L (98-107); Creatinine (Component) 1.5 mg/dL (0.6-1.3); Globulin 2.7 gm/dL (2.3-3.5); Glucose 223 mg/dL (74-106); Osmolality,Calculated 291 (275-295); Potassium 4.4 mMol/L (3.4-5.1); Sodium 141 mMol/L (136-145); Total Protein 7.3 gm/dL (5.7-8.2); eGFR 45 See Note
== END | disposition home or self-care (01) ==
LOC: COPL 09:49
PROVIDERS: PCP Internal Medicine; Referring Provider Internal Medicine; Visit Provider Internal Medicine
DX: D50.0 Iron deficiency anemia secondary to blood loss (chronic) (principal); I10 Essential (primary) hypertension
CPT/HCPCS: 36415; 80053; 85025

== ENCOUNTER → 2024-12-06 | Outpatient (CLI) | payer MEDICARE, MEDICAID, SELFPAY ==
[2024-12-06 08:58] LABS: Collection Type, Urine Clean Catch
[2024-12-06 09:20] LABS: Basophils # (Auto) 0.1 Thou/mm3 (0.0-0.2); Basophils % (Auto) 1 % (0-2.5); Eosinophils # (Auto) 0.1 Thou/mm3 (0.0-0.5); Eosinophils % (Auto) 1 % (0-10); Hematocrit 40.7 % (41.0-53.0); Hemoglobin 13.5 g/dL (13.5-16.0); Immature Granulocytes % (Auto) 0 % (0-0); Immature Granulocytes Auto 0.02 Thou/mm3 (0.00-0.00); Lymphocytes % (Auto) 25 % (10-50); Mean Corpuscular HGB Conc 33.2 g/dl (31.0-37.0); Mean Corpuscular Hemoglobin 28.6 pg (25.0-35.0); Mean Corpuscular Volume 86 fL (80-100); Monocytes # (Auto) 0.6 Thou/mm3 (0.0-0.8); Monocytes % (Auto) 7 % (0-12); Neutrophils # (Auto) 5.2 Thou/mm3 (1.8-7.7); Neutrophils % (Auto) 66 % (37-80); Nucleated Red Blood Cell % 0 /100 WBC (0); Platelet Count 198 Thou/mm3 (140-440); RDW Standard Deviation 42.3 fL (35.1-43.9); Red Blood Count 4.72 Miln/mm3 (4.50-5.90); White Blood Count 7.8 Thou/mm3 (3.8-10.6)
[2024-12-06 09:22] LABS: Bilirubin,Urine Negative (Negative); Blood,Urine Trace (Negative); Clarity,Urine Clear (Clear/Hazy); Color,Urine Lt-Yellow (Lt Yel-Yel); Glucose, Urine Negative (Negative); Ketones,Urine Negative (Negative); Leukocyte Esterase,Urine Negative (Negative); Nitrite,Urine Negative (Negative); Protein,Urine Trace (Neg - Trace); RBC,Urine 5 /hpf (0-3); Specific Gravity,Urine 1.021 (1.001-1.035); Squamous Epithelial Cell,Urine < 1 /hpf (0-5); Urobilinogen,Urine Negative mg/dL (0.0-1.0); WBC,Urine 1 /hpf (0-5)
[2024-12-06 09:25] LABS: Glucose Estimated Average 157 mg/dL (80-131); Hemoglobin A1C 7.1 % Hgb (4.8-6.0)
[2024-12-06 09:31] LABS: Creatinine MALB Rnd Ur 138 mg/dL (30-125); Microalbumin Creat Ratio 71 mg/gCrea (<30); Microalbumin, Random Urine 98 mg/L (0-300)
[2024-12-06 09:32] LABS: Alanine Aminotransferase 16 U/L (10-49); Albumin, Serum 4.7 gm/dL (3.4-4.8); Albumin/Globulin Ratio 1.9 (1.2-2.2); Alkaline Phosphatase 53 U/L (46-116); Anion Gap 8 (7-16); Aspartate Amino Transferase 21 U/L (0-34); BUN/Creatinine Ratio 13 Ratio (12-20); Blood Urea Nitrogen 23 mg/dL (9-23); Calcium 9.9 mg/dL (8.3-10.6); Calcium (Corrected) 9.9 mg/dL (8.5-10.1); Carbon Dioxide 26.7 mMol/L (20.0-31.0); Cardiac Risk Estimate 4.2 RATIO (4.0-6.7); Chloride 106 mMol/L (98-107); Cholesterol 196 mg/dL (132-200); Creatinine (Component) 1.8 mg/dL (0.6-1.3); Globulin 2.5 gm/dL (2.3-3.5); Glucose 169 mg/dL (74-106); HDL Cholesterol 47 mg/dL (40-60); LDL Cholesterol,Calculated 106 mg/dL (0-130); Osmolality,Calculated 288 (275-295); Potassium 5.5 mMol/L (3.4-5.1); Sodium 141 mMol/L (136-145); Thyroid Stimulating Hormone 1.66 uIU/mL (0.55-4.78); Total Protein 7.2 gm/dL (5.7-8.2); Triglycerides 215 mg/dL (30-150); Uric Acid 9.4 mg/dL (3.7-9.2); eGFR 36 See Note
== END | disposition home or self-care (01) ==
LOC: COPL 08:02
PROVIDERS: PCP Family Medicine; Referring Provider Family Medicine; Visit Provider Family Medicine
DX: Z00.00 Encounter for general adult medical examination without abnormal findings (principal); E11.65 Type 2 diabetes mellitus with hyperglycemia; E78.2 Mixed hyperlipidemia; I10 Essential (primary) hypertension; E79.0 Hyperuricemia without signs of inflammatory arthritis and tophaceous disease
CPT/HCPCS: 36415; 80053; 80061; 81001; 82043; 82570; 83036; 84443; 84550; 85025

== ENCOUNTER → 2025-01-22 | Outpatient (CLI) | payer MEDICARE, MEDICAID, SELFPAY ==
--- NOTE | 2025-01-22 08:35 | XR_ITS ---
Examination: Bone densitometry Date and time of exam:January 22, 2025, 0921 hours INDICATIONS: 85-year-old male with diagnosis age related osteoporosis Technique: Lumbar spine and hip total bone mineralization values of an calculated. Peak reference and age match control results have been displayed. Findings: Lumbar spine total bone mineralization is1.123 gm/cm2. This is 0.3 standard deviations above peak reference. This is 1.6 standard deviations above age-matched controls. Hip total bone mineralization is 1.042 gm/cm2 This is 0.1 standard deviations above peak reference. This is 1.3 standard deviations above age-matched controls Impression: There is normal mineralization based on lumbar spine measurements. There is osteopenia based on hip measurements
--- NOTE | 2025-01-22 09:08 | XR_ITS ---
Examination: Knee bilateral, 6 views Technique: Knee AP, lateral, oblique each knee total 6 views Date and time of exam: January 22, 2025 0944 hours Comparison December 29, 2022 INDICATIONS: Knee pain 5 years. FINDINGS: Bilateral advanced tricompartment osteoarthritis, most severe medial joint spaces No fractures Soft tissue vascular calcification Small bilateral knee effusions IMPRESSION: Bilateral advanced tricompartment osteoarthritis
[2025-01-22 11:57] LABS: Albumin, Serum 4.2 gm/dL (3.4-4.8); Anion Gap 6 (7-16); BUN/Creatinine Ratio 15 Ratio (12-20); Blood Urea Nitrogen 32 mg/dL (9-23); Calcium 9.5 mg/dL (8.3-10.6); Calcium (Corrected) 9.5 mg/dL (8.5-10.1); Carbon Dioxide 27.5 mMol/L (20.0-31.0); Chloride 109 mMol/L (98-107); Creatinine (Component) 2.1 mg/dL (0.6-1.3); Glucose 125 mg/dL (74-106); Magnesium 2.1 mg/dL (1.6-2.6); Osmolality,Calculated 291 (275-295); Phosphorous 3.0 mg/dL (2.4-5.1); Potassium 5.3 mMol/L (3.4-5.1); Sodium 142 mMol/L (136-145); Uric Acid 5.2 mg/dL (3.7-9.2); eGFR 30 See Note
== END | disposition home or self-care (01) ==
LOC: CDIM 08:44 → COPL 10:22
PROVIDERS: Referring Provider Family Medicine; Visit Provider Radiology Diagnostic Radiology
DX: M85.88 Other specified disorders of bone density and structure, other site (principal); M17.0 Bilateral primary osteoarthritis of knee; E11.22 Type 2 diabetes mellitus with diabetic chronic kidney disease; N18.32 Chronic kidney disease, stage 3b; E79.0 Hyperuricemia without signs of inflammatory arthritis and tophaceous disease
CPT/HCPCS: 36415; 73562; 77080; 80069; 83735; 84550

== ENCOUNTER 2025-01-25 19:53 | Emergency (ER) | payer MEDICARE, MEDICAID, SELFPAY ==
[2025-01-25 19:54] VITALS: BMI 27.1
[2025-01-25 20:07] VITALS: BP 133/70; PULSE 54; RESP 18; TEMP 37.1; O2SAT 97
--- NOTE | 2025-01-25 20:09 | PD.EDRME ---
Rapid Medical Screening Exam RME Arrival date/time: 01/25/25 19:53 Chief Complaint: GI Bleed Time Seen by Provider: 01/25/25 20:02 Vital signs: Vital Signs Temperature 98.7 F 01/25/25 20:07 Pulse Rate 54 L 01/25/25 20:07 Respiratory Rate 18 01/25/25 20:07 Blood Pressure 133/70 H 01/25/25 20:07 Pulse Oximetry (%) 97 01/25/25 20:07 Oxygen Delivery Method Room Air 01/25/25 20:07 E Narrative: Black stools and epigastric pain x2 days. Hx of GI bleed/ulcer in October.
--- NOTE | 2025-01-25 20:11 | EKG_ITS ---
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
[2025-01-25 21:01] LABS: INR 1.0 (0.9-1.3); Partial Thromboplastin Time 24.3 Seconds (22.0-36.0); Prothrombin Time 10.5 Seconds (9.0-12.2)
[2025-01-25 21:42] LABS: Basophils # (Auto) 0.1 Thou/mm3 (0.0-0.2); Basophils % (Auto) 1 % (0-2.5); Eosinophils # (Auto) 0.2 Thou/mm3 (0.0-0.5); Eosinophils % (Auto) 2 % (0-10); Hematocrit 39.2 % (41.0-53.0); Hemoglobin 12.4 g/dL (13.5-16.0); Immature Granulocytes Auto 0.04 Thou/mm3 (0.00-0.00); Lymphocytes # (Auto) 1.7 Thou/mm3 (1.0-4.8); Lymphocytes % (Auto) 15 % (10-50); Mean Corpuscular HGB Conc 31.6 g/dl (31.0-37.0); Mean Corpuscular Hemoglobin 28.0 pg (25.0-35.0); Mean Corpuscular Volume 89 fL (80-100); Monocytes # (Auto) 1.0 Thou/mm3 (0.0-0.8); Monocytes % (Auto) 9 % (0-12); Neutrophils # (Auto) 8.3 Thou/mm3 (1.8-7.7); Neutrophils % (Auto) 74 % (37-80); Nucleated Red Blood Cell # 0.00 Thou/mm3 (0.00-0.00); Nucleated Red Blood Cell % 0 /100 WBC (0); Platelet Count 202 Thou/mm3 (140-440); RDW Standard Deviation 45.4 fL (35.1-43.9); Red Blood Count 4.43 Miln/mm3 (4.50-5.90); White Blood Count 11.3 Thou/mm3 (3.8-10.6)
[2025-01-25 22:22] LABS: Alanine Aminotransferase 19 U/L (10-49); Albumin, Serum 4.5 gm/dL (3.4-4.8); Albumin/Globulin Ratio 1.8 (1.2-2.2); Alkaline Phosphatase 60 U/L (46-116); Anion Gap 10 (7-16); Aspartate Amino Transferase 24 U/L (0-34); BUN/Creatinine Ratio 14 Ratio (12-20); Bilirubin,Total 0.6 mg/dL (0.3-1.2); Blood Urea Nitrogen 28 mg/dL (9-23); Calcium 10.4 mg/dL (8.3-10.6); Calcium (Corrected) 10.4 mg/dL (8.5-10.1); Carbon Dioxide 22.9 mMol/L (20.0-31.0); Chloride 107 mMol/L (98-107); Creatinine (Component) 2.0 mg/dL (0.6-1.3); Estimated Creatinine Clearance 23.9 mL/min (>60); Globulin 2.5 gm/dL (2.3-3.5); Glucose 150 mg/dL (74-106); Lipase 53 U/L (12-53); Osmolality,Calculated 287 (275-295); Potassium 5.4 mMol/L (3.4-5.1); Sodium 140 mMol/L (136-145); Total Protein 7.0 gm/dL (5.7-8.2); Troponin I < 0.020 ng/mL (0.0-0.045); eGFR 32 See Note
[2025-01-26 03:51] VITALS: BP 144/75; PULSE 58; RESP 18; TEMP 36.2; O2SAT 99
--- NOTE | 2025-01-26 04:21 | PD.EDGIBLD ---
ED GI Bleed RME/HPI General Chief complaint: GI Bleed Stated complaint: RECTAL BLEEDING Time Seen by Provider: 01/25/25 20:02 Arrival date/time: 01/25/25 19:53 RME / HPI RME / HPI Narrative: Black stools and epigastric pain x2 days. Hx of GI bleed/ulcer in October. DR. OJEDA MAIN ED EVALUATION: 85 y/o male with Hx of GI Bleed presents to ED c/o epigastrc abdominal pain and dark stool x 4 days. Patient was seen in ED in October where he was found to be anemic and diagnosed with non-bleeding ulcers via endoscopy. Denies vomiting. Denies supplemetary iron. No other concerns or complaints expressed at this time. Related Data Home Medications ?Medication ?Instructions ?Recorded ?Confirmed tamsulosin 0.4 mg capsule (Flomax) 0.4 mg PO QDAY ##0 04/10/15 03/14/24 glimepiride 4 mg tablet 4 mg PO QDAY ##60 08/17/16 03/14/24 lisinopril 10 mg tablet 20 mg PO QDAY ##30 08/17/16 03/14/24 atenolol 50 mg tablet 50 mg PO QDAY 03/14/24 03/14/24 Held on 10/23/24. Instructions: Resume on 11/13/24. hold until seen by Cardiology rosuvastatin 20 mg tablet 20 mg PO QDAY 03/14/24 03/14/24 sitagliptin phosphate 50 mg tablet 50 mg PO QDAY 03/14/24 03/14/24 (Januvia) Previous Rx's ?Medication ?Instructions ?Recorded pantoprazole 40 mg tablet,delayed 40 mg PO QDAY #30 tabs 01/26/25 release (Protonix) Allergies Allergy/AdvReac Type Severity Reaction Status Date / Time No Known Allergies Allergy Verified 01/25/25 19:59 Review of Systems Review of Systems Systems Reviewed: All systems reviewed, normal except as documented Past Medical History Past Medical History CARDIAC: Positive Cardiac Disorders, Hypercholesterolemia and Hypertension GASTROINTESTINAL: Positive Gastrointestinal Bleed GENITOURINARY: Positive Genitourinary Disorders and Benign Prostatic Hyperplasia MUSCULOSKELETAL: Positive Musculoskeletal Disorders and Arthritis ENT: Positive Deafness (hard of hearing) ENDOCRINE: Positive Diabetes Mellitus Type 2 Social History SMOKING STATUS: Former smoker ED Exam Narrative Physical exam: Generally patient is alert and in no obvious distress, heart regular rate and rhythm, lungs clear to auscultation equal bilaterally, abdomen soft bowel sounds present no send nontender, rectal exam showed dark-colored stool no gross blood trace guaiac positive. Neurologic exam no focal motor or sensory deficits., Skin is warm pale and dry Course Quality Measures none Orders Category Date Time Status EKG (ED ONLY) *Do not use* NOW Care 01/25/25 20:11 Completed EKG (ED Only) Stat Exams 01/25/25 20:11 Draft CBC Stat Lab 01/25/25 20:38 Completed CMP [Comprehensive Metabolic Panel] Stat Lab 01/25/25 20:38 Completed Lipase Stat Lab 01/25/25 20:38 Completed Partial Thromboplastin Time Stat Lab 01/25/25 20:38 Completed Prothrombin Time with INR Stat Lab 01/25/25 20:38 Completed Troponin I Stat Lab 01/25/25 20:38 Completed Type and Screen Stat Lab 01/25/25 20:38 Completed Vital Signs Vital signs: Vital Signs Temperature 98.7 F 01/25/25 20:07 Pulse Rate 54 L 01/25/25 20:07 Respiratory Rate 18 01/25/25 20:07 Blood Pressure 133/70 H 01/25/25 20:07 Pulse Oximetry (%) 97 01/25/25 20:07 Oxygen Delivery Method Room Air 01/25/25 20:07 PROCEDURES: Stool Hemoccult Procedural Steps Taken: stool placed in appropriate test area, developer placed on stool and control areas and controls appropriately positive and negative Hemoccult result: positive (trace) GI Bleed MDM Narrative MDM Narrative:: Scribe Attestation: IMerced, am scribing for and in the presence of Dr. Ojeda. Provider Notation: Although this document has been carefully reviewed, there may still be some phonetic and other typographical errors.? These errors are purely grammatical due to imperfections in the software program and should not be construed in any way to? compromise the substance of the patient's medical care during this visit. I interpreted all labs. Hemoglobin is 12.4. There is no thrombocytopenia. I researched the patient's past medical history in the computer and found that the patient had an EGD done in October of this year showing nonbleeding ulcers in the stomach and duodenum. He is not currently on a proton pump inhibitor. He will be placed back on Protonix as he should be on. He does have primary care follow-up. He is to return to the emergency room as needed or if condition worsens. He has not been vomiting. This is a stable upper GI bleed and the patient is stable for discharge. Patient data External records reviewed:: [facility] previous records (Reviewed prior ED records from 10/19/24. Patient was seen for Upper gastrointestinal bleed.) Clinical information provided by:: family ([facility] ) Social determinants that could affect healthcare access:: none Patient has the following chronic illnesses:: Hypercholesterolemia, Hypertension, Gastrointestinal Bleed, Benign Prostatic Hyperplasia, Arthritis, Deafness, Diabetes Mellitus Type 2 How is presenting disease/condition affected by chronic disease/condition?: exacerbated by Evaluation data The following diagnostics were reviewed and interpreted by me:: lab results and EKG tracing(s) Lab and/or radiology exams considered but not ordered:: None Interpretation Summary: See MDM above. Medications / Prescriptions Medications or Prescriptions considered but not ordered:: None Medication administrations:: See above Consultations Consultation(s) initiated? (list below): No Diagnosis GI bleed differential diagnosis: hemorrhoids, esophageal varices, gastritis, Bernadette-Morales syndrome, Upper gastrointestinal hemorrhage, Lower gastrointestinal hemorrhage, hematochezia, melena and anal fissure Most likely diagnosis given after review of the tests above:: None Admission Indicated Admission indicated?: not indicated Explain why admission is indicated or not indicated:: Patient does not meet admission crteria. Admission Request Was there a request for admission?: No Disposition Plan Disposition Plan: Discharge Discharge Attestation Discharge Attestation: The patient and all family members were given an opportunity to ask questions and understood the discharge instructions. Discharge instructions specifically effects, indications for sooner follow up or return to the emergency department, and the expected course of current diagnosis. Patient condition: Stable Discharge Plan Plan Patient Disposition: HOME (Self Care) Prescriptions/Referrals Prescriptions/Med Rec: New pantoprazole [Protonix] 40 mg tablet,delayed release (DR/EC) 40 mg PO QDAY Qty: 30 0RF No Action tamsulosin [Flomax] 0.4 MG capsule,extended release 24hr 0.4 mg PO QDAY Qty: 0 lisinopril 10 MG tablet 20 mg PO QDAY Qty: 30 glimepiride 4 MG tablet 4 mg PO QDAY Qty: 60 atenolol 50 mg tablet 50 mg PO QDAY Patient Comments: TAKE 1 TABLET BY MOUTH TWICE A DAY rosuvastatin 20 mg tablet 20 mg PO QDAY Patient Comments: TAKE 1 TABLET BY MOUTH EVERY DAY Januvia 50 mg tablet 50 mg PO QDAY Patient Comments: TAKE 1 TABLET BY MOUTH EVERY DAY Referrals: No Primary/Family,Physician [Primary Care Provider] - In 1 week Problem List Clinical Impression: Upper gastrointestinal bleed Patient/Caregiver Discharge Instructions Education Materials: ED Upper GI Bleeding (Stable) Print Language: Bel[place]ian Stand Alone Forms: Sophie Award Info., Patient Portal Info Letter
[2025-01-26 04:37] VITALS: RESP 16
== END 2025-01-26 04:38 | disposition home or self-care (01) ==
PROVIDERS: Physician Assistant; Emergency Provider Emergency Medicine
DX: K92.2 Gastrointestinal hemorrhage, unspecified (principal); E78.00 Pure hypercholesterolemia, unspecified; I10 Essential (primary) hypertension; N40.0 Benign prostatic hyperplasia without lower urinary tract symptoms; M19.90 Unspecified osteoarthritis, unspecified site; H91.90 Unspecified hearing loss, unspecified ear; E11.9 Type 2 diabetes mellitus without complications
CPT/HCPCS: 36415; 80053; 83690; 84484; 85025; 85610; 85730; 86850; 86900; 86901; 93005; 99283

== ENCOUNTER 2025-03-06 07:50 | Day surgery (SDC) | payer MEDICARE, MEDICAID, SELFPAY ==
[2025-03-05 11:05] LABS: Basophils # (Auto) 0.1 Thou/mm3 (0.0-0.2); Basophils % (Auto) 1 % (0-2.5); Eosinophils # (Auto) 0.1 Thou/mm3 (0.0-0.5); Eosinophils % (Auto) 2 % (0-10); Hematocrit 41.3 % (41.0-53.0); Hemoglobin 13.4 g/dL (13.5-16.0); Immature Granulocytes Auto 0.02 Thou/mm3 (0.00-0.00); Lymphocytes # (Auto) 2.0 Thou/mm3 (1.0-4.8); Lymphocytes % (Auto) 22 % (10-50); Mean Corpuscular HGB Conc 32.4 g/dl (31.0-37.0); Mean Corpuscular Hemoglobin 28.4 pg (25.0-35.0); Mean Corpuscular Volume 88 fL (80-100); Monocytes # (Auto) 0.8 Thou/mm3 (0.0-0.8); Monocytes % (Auto) 9 % (0-12); Neutrophils # (Auto) 5.8 Thou/mm3 (1.8-7.7); Neutrophils % (Auto) 66 % (37-80); Nucleated Red Blood Cell # 0.00 Thou/mm3 (0.00-0.00); Nucleated Red Blood Cell % 0 /100 WBC (0); Platelet Count 219 Thou/mm3 (140-440); RDW Standard Deviation 44.4 fL (35.1-43.9); Red Blood Count 4.72 Miln/mm3 (4.50-5.90); White Blood Count 8.8 Thou/mm3 (3.8-10.6)
[2025-03-05 11:18] LABS: Alanine Aminotransferase 18 U/L (10-49); Albumin, Serum 4.5 gm/dL (3.4-4.8); Albumin/Globulin Ratio 1.6 (1.2-2.2); Alkaline Phosphatase 64 U/L (46-116); Anion Gap 10 (7-16); Aspartate Amino Transferase 21 U/L (0-34); BUN/Creatinine Ratio 11 Ratio (12-20); Bilirubin,Total 0.7 mg/dL (0.3-1.2); Blood Urea Nitrogen 22 mg/dL (9-23); Calcium 10.5 mg/dL (8.3-10.6); Calcium (Corrected) 10.5 mg/dL (8.5-10.1); Carbon Dioxide 28.1 mMol/L (20.0-31.0); Chloride 103 mMol/L (98-107); Creatinine (Component) 2.0 mg/dL (0.6-1.3); Globulin 2.8 gm/dL (2.3-3.5); Glucose 198 mg/dL (74-106); Osmolality,Calculated 290 (275-295); Potassium 4.6 mMol/L (3.4-5.1); Sodium 141 mMol/L (136-145); Total Protein 7.3 gm/dL (5.7-8.2); eGFR 32 See Note
[2025-03-05 12:07] VITALS: BMI 27.4
[2025-03-06] VITALS (8 sets, daily range): BP systolic 100–172; BP diastolic 56–71; PULSE 38–55; RESP 10–39; TEMP 36.1–36.9; O2SAT 92–99; BMI 26.8
[2025-03-06] MEDS: SODIUM CHLORIDE 0.9% 500 ML 500 ML 20 ML IV (09:44)
[2025-03-06] MEDS: BENZOCAINE 20% (Hurricaine) SPRAY 1 DOSE TOP (09:44)
[2025-03-06] MEDS: fentaNYL CIT INJ 50 mCg/ML AMP 2ML (ASD USE ONLY) IVP (09:48)
[2025-03-06] MEDS: MIDAZOLAM INJ 1 MG/ML VIAL 2 ML (ASD USE ONLY) 2 MG IVP (09:48)
== END 2025-03-06 10:49 | disposition home or self-care (01) ==
PROVIDERS: PCP Family Medicine; Referring Provider Specialist; Visit Provider Specialist
PROC: (CPT 43239; principal; 2025-03-06 09:00)
DX: K29.50 Unspecified chronic gastritis without bleeding (principal); N40.0 Benign prostatic hyperplasia without lower urinary tract symptoms; E11.9 Type 2 diabetes mellitus without complications; Z79.84 Long term (current) use of oral hypoglycemic drugs; E78.5 Hyperlipidemia, unspecified; I10 Essential (primary) hypertension; Z79.899 Other long term (current) drug therapy; Z87.11 Personal history of peptic ulcer disease
CPT/HCPCS: 43239; 36415; 80053; 85025; A4649; J1200; J2250; J3010; J7999; A9270

== ENCOUNTER → 2025-04-18 | Outpatient (CLI) | payer MEDICARE, MEDICAID, SELFPAY ==
[2025-04-18 10:57] LABS: Glucose Estimated Average 146 mg/dL (80-131); Hemoglobin A1C 6.7 % Hgb (4.8-6.0)
[2025-04-18 11:07] LABS: Alanine Aminotransferase 12 U/L (10-49); Albumin, Serum 4.8 gm/dL (3.4-4.8); Albumin/Globulin Ratio 1.7 (1.2-2.2); Alkaline Phosphatase 53 U/L (46-116); Anion Gap 8 (7-16); Aspartate Amino Transferase 20 U/L (0-34); BUN/Creatinine Ratio 13 Ratio (12-20); Bilirubin,Total 0.9 mg/dL (0.3-1.2); Blood Urea Nitrogen 21 mg/dL (9-23); Calcium 9.7 mg/dL (8.3-10.6); Calcium (Corrected) 9.7 mg/dL (8.5-10.1); Carbon Dioxide 29.2 mMol/L (20.0-31.0); Cardiac Risk Estimate 6.8 RATIO (4.0-6.7); Chloride 104 mMol/L (98-107); Cholesterol 334 mg/dL (132-200); Creatinine (Component) 1.6 mg/dL (0.6-1.3); Globulin 2.8 gm/dL (2.3-3.5); Glucose 158 mg/dL (74-106); HDL Cholesterol 49 mg/dL (40-60); LDL Cholesterol,Calculated 234 mg/dL (0-130); Osmolality,Calculated 287 (275-295); Potassium 5.5 mMol/L (3.4-5.1); Sodium 141 mMol/L (136-145); Total Protein 7.6 gm/dL (5.7-8.2); Triglycerides 255 mg/dL (30-150); Uric Acid 8.6 mg/dL (3.7-9.2); eGFR 42 See Note
== END | disposition home or self-care (01) ==
LOC: COPL 09:16
PROVIDERS: PCP Family Medicine; Referring Provider Family Medicine; Visit Provider Family Medicine
DX: E11.69 Type 2 diabetes mellitus with other specified complication (principal); I10 Essential (primary) hypertension; E78.2 Mixed hyperlipidemia; E79.0 Hyperuricemia without signs of inflammatory arthritis and tophaceous disease
CPT/HCPCS: 36415; 80053; 80061; 83036; 84550